=== PATIENT | female | born 1950 | race Caucasian/White ===

== ENCOUNTER → 2017-05-02 | Outpatient (CLI) | payer OTHER ==
[~2017-05-02] MED LIST: ATOR40TA PO; AZIT250 PO; BENZ100A PO; CHOL10002 PO; CIPR500 PO; CRUTCH2 USE; Flonase 0.05% N16 GM; HYDACE5 PO; IBU; IBUP800 PO; INS70/30PN SC; INSULANPEN SC; LOSA50 PO; METF500 PO; PHENA200 PO; SULTRIDS PO; TRAM50 PO; TYL
[2017-05-02 14:14] LABS: Hematocrit 38.2 % (33.0-51.0); Hemoglobin 12.7 g/dL (11.5-16.0)
[2017-05-02 14:58] LABS: Albumin, Blood 3.3 g/dL (3.4-5.0); Anion Gap 9 mmol/L (6-16); Blood Urea Nitrogen 30 mg/dL (8-24); Bun/Creatinine Ratio 46.5 (12.0-20.0); CO2, Blood 26 mmol/L (21-32); Calcium, Blood 9.2 mg/dL (8.5-10.1); Chloride, Blood 101 mmol/L (98-108); Creatinine, Blood 0.65 mg/dL (0.40-1.00); Glomerular Filtration Rate >60 (60-); Glucose, Blood 204 mg/dL (70-99); Phosphorus, Blood 4.4 mg/dL (2.5-4.9); Potassium, Blood 4.3 mmol/L (3.5-5.5); Sodium, Blood 136 mmol/L (136-145)
[2017-05-03 19:40] LABS: ANA Negative (NEG); Myeloperoxidase Antibody <0.2 AI (<1.0)
[2017-05-03 20:22] LABS: Hepatitis C Antibody Non Reactive (NR)
[2017-05-03 22:58] LABS: IgA 505 mg/dL (87-352); IgG 1107 mg/dL (700-1600); IgM 56 mg/dL (26-217)
[2017-05-04 11:48] LABS: Albumin 3.4 g/dL (3.3-4.8); Albumin 47.3 % (45.0-80.0); Protein, Total 7.2 g/dL (6.1-7.8)
[2017-05-04 18:47] LABS: ANCA <1:20
== END ==
LOC: OLS 13:36 → LAB SHORT 13:36
PROVIDERS: Internal Medicine
DX: R80.9 Proteinuria, unspecified (principal); E55.9 Vitamin D deficiency, unspecified; D64.9 Anemia, unspecified
CPT/HCPCS: 36415; 80069; 82306; 82784; 83516; 84165; 85014; 85018; 86038; 86256; 86334; 86704; 86706; 86708; 86803; 87340

== ENCOUNTER 2017-05-18 09:17 | Day surgery (SDC) | payer OTHER ==
[~2017-05-18] VITALS: Ht 160 cm; Wt 2.4 kg
[~2017-05-18 09:17] MED LIST changes: -ATOR40TA PO; -CHOL10002 PO; -Flonase 0.05% N16 GM; -LOSA50 PO; -TRAM50 PO
[2017-05-18] MEDS ORDERED: LOSA50 PO (10:05)
[2017-05-18] MEDS ORDERED: ATOR40TA PO (10:06)
[2018-02-18] MEDS ORDERED: CHOL10002 PO (08:20)
[2018-02-18] MEDS ORDERED: TRAM50 PO (08:21)
== END 2017-05-18 14:38 | disposition home or self-care (01) ==
LOC: ORSCSDS 09:17
PROVIDERS: Podiatrist Foot & Ankle Surgery
PROC: 0QSH04Z Reposition Left Tibia with Internal Fixation Device, Open Approach (ICD-10-PCS; principal; 2017-05-18 10:45)
PROC: 0QSK04Z Reposition Left Fibula with Internal Fixation Device, Open Approach (ICD-10-PCS; principal; 2017-05-18 10:45)
DX: S82.841A Displaced bimalleolar fracture of right lower leg, initial encounter for closed fracture (principal); I10 Essential (primary) hypertension; E11.9 Type 2 diabetes mellitus without complications; Z79.4 Long term (current) use of insulin; Z79.899 Other long term (current) drug therapy
CPT/HCPCS: 82947; C1713; J0171; J0690; J1100; J1885; J2250; J2405; J3010; J7120

== ENCOUNTER 2017-10-04 01:16 | Emergency (ER) | payer OTHER ==
[~2017-10-04] VITALS: Ht 160 cm; Wt 59.0 kg
[~2017-10-04 01:16] MED LIST changes: +ATOR40TA; +LOSA50
[2017-10-04 02:06] LABS: BASOPHILS ABSOLUTE AUTO 0.06 K/mm3 (0.00-0.23); BASOPHILS PERCENT AUTO 1 % (0-2); EOSINOPHILS ABSOLUTE AUTO 0.21 K/mm3 (0.00-0.68); EOSINOPHILS PERCENT AUTO 2 % (0-6); Hematocrit 37.1 % (33.0-51.0); Hemoglobin 12.4 g/dL (11.5-16.0); IMMATURE GRAN ABSOLUTE AUTO 0.08 K/mm3 (0.00-0.10); IMMATURE GRAN PERCENT AUTO 1 % (0-1); LYMPHOCYTES ABSOLUTE AUTO 4.15 K/mm3 (0.84-5.20); LYMPHOCYTES PERCENT AUTO 35 % (21-46); MONOCYTES ABSOLUTE AUTO 1.09 K/mm3 (0.16-1.47); MONOCYTES PERCENT AUTO 9 % (4-13); Mean Corpuscular HGB 28.9 pg (26.0-34.0); Mean Corpuscular HGB Conc 33.4 g/dL (31.5-36.5); Mean Corpuscular Volume 87 fL (80-100); Mean Platelet Volume 10.3 fL (9.1-12.4); NEUTROPHILS ABSOLUTE AUTO 6.16 K/mm3 (1.96-9.15); NEUTROPHILS PERCENT AUTO 52 % (41-73); Platelet Count 507 K/mm3 (150-400); RDW Coefficient Variation 13.3 % (11.7-14.2); RDW Standard Deviation 41.7 fL (35.1-46.3); Red Blood Cell Count 4.29 M/mm3 (3.80-5.20); White Blood Cell Count 11.75 K/mm3 (4.00-11.30)
[2017-10-04 02:18] LABS: Anion Gap 6 mmol/L (6-16); Blood Urea Nitrogen 21 mg/dL (8-24); Bun/Creatinine Ratio 29.2 (12.0-20.0); CO2, Blood 30 mmol/L (21-32); Calcium, Blood 9.1 mg/dL (8.5-10.1); Chloride, Blood 96 mmol/L (98-108); Creatinine, Blood 0.72 mg/dL (0.40-1.00); Glomerular Filtration Rate >60 (60-); Glucose, Blood 459 mg/dL (70-99); Potassium, Blood 4.1 mmol/L (3.5-5.5); Sodium, Blood 132 mmol/L (136-145)
[2017-10-04] MEDS ORDERED: Flonase 0.05% N16 GM (02:50)
== END 2017-10-04 03:28 | disposition home or self-care (01) ==
LOC: ER 01:16
PROVIDERS: Emergency Medicine
DX: R09.82 Postnasal drip (principal); R05 Cough; E11.65 Type 2 diabetes mellitus with hyperglycemia; Z79.4 Long term (current) use of insulin; Z79.899 Other long term (current) drug therapy
CPT/HCPCS: 36415; 71046; 80048; 85025; 99283-25

== ENCOUNTER 2018-06-30 18:44 | Emergency (ER) | payer OTHER ==
[~2018-06-30] VITALS: Ht 160 cm; Wt 63.5 kg
[~2018-06-30 18:44] MED LIST changes: -ATOR40TA; +ATOR40TA PO; +CHOL10002 PO; +Flonase 0.05% N16 GM; -LOSA50; +LOSA50 PO; +TRAM50 PO
[2018-06-30 19:57] LABS: BASOPHILS ABSOLUTE AUTO 0.07 K/mm3 (0.00-0.23); BASOPHILS PERCENT AUTO 1 % (0-2); EOSINOPHILS ABSOLUTE AUTO 0.15 K/mm3 (0.00-0.68); EOSINOPHILS PERCENT AUTO 1 % (0-6); Hematocrit 37.7 % (33.0-51.0); Hemoglobin 12.7 g/dL (11.5-16.0); IMMATURE GRAN ABSOLUTE AUTO 0.02 K/mm3 (0.00-0.10); IMMATURE GRAN PERCENT AUTO 0 % (0-1); LYMPHOCYTES ABSOLUTE AUTO 4.06 K/mm3 (0.84-5.20); LYMPHOCYTES PERCENT AUTO 38 % (21-46); MONOCYTES ABSOLUTE AUTO 0.69 K/mm3 (0.16-1.47); MONOCYTES PERCENT AUTO 7 % (4-13); Mean Corpuscular HGB 30.2 pg (26.0-34.0); Mean Corpuscular HGB Conc 33.7 g/dL (31.5-36.5); Mean Corpuscular Volume 90 fL (80-100); Mean Platelet Volume 10.9 fL (9.1-12.4); NEUTROPHILS PERCENT AUTO 53 % (41-73); Platelet Count 371 K/mm3 (150-400); RDW Coefficient Variation 12.1 % (11.7-14.2); RDW Standard Deviation 39.3 fL (35.1-46.3); White Blood Cell Count 10.69 K/mm3 (4.00-11.30)
[2018-06-30 20:14] LABS: Alanine Aminotransfer (ALT/SGP 24 U/L (12-78); Albumin, Blood 2.7 g/dL (3.4-5.0); Albumin/Globulin Ratio 0.6 (0.8-1.8); Alk Phos 182 U/L (50-136); Anion Gap 8 mmol/L (6-16); Aspartate Aminotrans (AST/SGOT 23 U/L (12-37); Bilirubin, Total 0.2 mg/dL (0.1-1.0); Blood Urea Nitrogen 30 mg/dL (8-24); Bun/Creatinine Ratio 28.8 (12.0-20.0); CO2, Blood 27 mmol/L (21-32); Calcium, Blood 9.4 mg/dL (8.5-10.1); Chloride, Blood 105 mmol/L (98-108); Creatinine, Blood 1.04 mg/dL (0.40-1.00); Globulin, Blood 4.3 g/dL (2.2-4.0); Glomerular Filtration Rate 56 (60-); Glucose, Blood 110 mg/dL (70-99); Potassium, Blood 3.5 mmol/L (3.5-5.5); Sodium, Blood 140 mmol/L (136-145); Troponin I <0.015 ng/mL (0.000-0.040)
== END 2018-06-30 22:52 | disposition home or self-care (01) ==
LOC: ER 18:44
PROVIDERS: Emergency Medicine
DX: R42 Dizziness and giddiness (principal); R53.1 Weakness; R53.83 Other fatigue; E11.9 Type 2 diabetes mellitus without complications; I10 Essential (primary) hypertension; Z79.899 Other long term (current) drug therapy; Z79.4 Long term (current) use of insulin
CPT/HCPCS: 70450; 80053; 82947; 84484; 85025; 93005; 93010; 99284-25

== ENCOUNTER 2018-07-28 22:16 | Emergency (ER) | payer OTHER ==
[~2018-07-28] VITALS: Ht 160 cm; Wt 64.0 kg
[2018-07-28 23:47] LABS: BASOPHILS ABSOLUTE AUTO 0.06 K/mm3 (0.00-0.23); BASOPHILS PERCENT AUTO 0 % (0-2); EOSINOPHILS PERCENT AUTO 0 % (0-6); Hemoglobin 11.6 g/dL (11.5-16.0); IMMATURE GRAN ABSOLUTE AUTO 0.17 K/mm3 (0.00-0.10); IMMATURE GRAN PERCENT AUTO 1 % (0-1); LYMPHOCYTES ABSOLUTE AUTO 1.34 K/mm3 (0.84-5.20); LYMPHOCYTES PERCENT AUTO 6 % (21-46); MONOCYTES ABSOLUTE AUTO 1.12 K/mm3 (0.16-1.47); MONOCYTES PERCENT AUTO 5 % (4-13); Mean Corpuscular HGB 30.6 pg (26.0-34.0); Mean Corpuscular HGB Conc 33.1 g/dL (31.5-36.5); Mean Corpuscular Volume 92 fL (80-100); Mean Platelet Volume 10.9 fL (9.1-12.4); NEUTROPHILS ABSOLUTE AUTO 19.34 K/mm3 (1.96-9.15); NEUTROPHILS PERCENT AUTO 88 % (41-73); Platelet Count 355 K/mm3 (150-400); RDW Coefficient Variation 12.8 % (11.7-14.2); RDW Standard Deviation 43.6 fL (35.1-46.3); Red Blood Cell Count 3.79 M/mm3 (3.80-5.20); White Blood Cell Count 22.03 K/mm3 (4.00-11.30)
[2018-07-28 23:48] LABS: Source, Urine Clean Catch
[2018-07-28 23:51] LABS: Bilirubin, Urine Neg (Neg); Blood, Urine 2+ (Neg); Glucose Qualitative, Urine 4+ (Neg); Ketones, Urine 3+ (Neg); Leukocyte Esterase, Urine Neg (Neg); Nitrite, Urine Neg (Neg); Protein, Urine 4+ (Neg); Urobilinogen, Urine NORM (Normal)
[2018-07-28 23:52] LABS: Appearance, Urine Clear (Clear); Color, Urine Yellow (P-Yellow)
[2018-07-28 23:57] LABS: Red Blood Cells, Urine 0-2 /hpf (0-2)
[2018-07-28 23:58] LABS: Amorphous Light (0-Heavy); Bacteria Mod /hpf; Mucus Light (0-Heavy); Squamous Epithelial Cells Few /hpf (Few)
[2018-07-29 00:04] LABS: Albumin, Blood 2.5 g/dL (3.4-5.0); Albumin/Globulin Ratio 0.6 (0.8-1.8); Bilirubin, Total 0.3 mg/dL (0.1-1.0); Bun/Creatinine Ratio 25.5 (12.0-20.0); Calcium, Blood 8.3 mg/dL (8.5-10.1); Creatinine, Blood 1.02 mg/dL (0.40-1.00); Globulin, Blood 4.4 g/dL (2.2-4.0); Potassium, Blood 4.6 mmol/L (3.5-5.5); Total Protein, Blood 6.9 g/dL (6.4-8.2)
[2018-07-29 00:07] LABS: U Amphetamine Screen Not Detected; U Barbituate Screen Not Detected; U Benzodiazapine Screen Not Detected; U Buprenorphine Screen Not Detected; U Cannabinoids Screen Not Detected; U Cocaine Screen Not Detected; U Methadone Screen Not Detected; U Methamphetamine Screen Not Detected; U Opiates Screen Not Detected; U Oxycodone Screen Not Detected; U Phencyclidine Screen Not Detected; U Propoxyphene Screen Not Detected
[2018-07-29] MEDS ORDERED: CEFD300 PO (01:16)
== END 2018-07-29 01:53 | disposition home or self-care (01) ==
LOC: ER 22:16
PROVIDERS: Emergency Medicine
DX: G93.41 Metabolic encephalopathy (principal); N39.0 Urinary tract infection, site not specified; E11.65 Type 2 diabetes mellitus with hyperglycemia; Z79.4 Long term (current) use of insulin
CPT/HCPCS: 70450; 71046; 80053; 81001; 82140; 82947; 85025; 87086; 93005; 93010; 96361; 96365; 99285-25; J0696; J1815; J7030

== ENCOUNTER 2018-10-01 18:15 | Emergency (ER) | payer OTHER ==
[~2018-10-01] VITALS: Ht 165.1 cm; Wt 59.0 kg
[~2018-10-01 18:15] MED LIST changes: +CEFD300 PO; -INS70/30PN SC; +LOSA25 PO; -LOSA50 PO; +NOVOLOG FL100 UNIT/1 SC
[2018-10-01 19:01] LABS: BASOPHILS ABSOLUTE AUTO 0.07 K/mm3 (0.00-0.23); BASOPHILS PERCENT AUTO 1 % (0-2); EOSINOPHILS ABSOLUTE AUTO 0.24 K/mm3 (0.00-0.68); EOSINOPHILS PERCENT AUTO 3 % (0-6); Hematocrit 36.9 % (33.0-51.0); Hemoglobin 12.5 g/dL (11.5-16.0); IMMATURE GRAN ABSOLUTE AUTO 0.02 K/mm3 (0.00-0.10); IMMATURE GRAN PERCENT AUTO 0 % (0-1); LYMPHOCYTES ABSOLUTE AUTO 2.36 K/mm3 (0.84-5.20); LYMPHOCYTES PERCENT AUTO 25 % (21-46); MONOCYTES ABSOLUTE AUTO 0.66 K/mm3 (0.16-1.47); MONOCYTES PERCENT AUTO 7 % (4-13); Mean Corpuscular HGB 30.1 pg (26.0-34.0); Mean Corpuscular HGB Conc 33.9 g/dL (31.5-36.5); Mean Corpuscular Volume 89 fL (80-100); Mean Platelet Volume 11.6 fL (9.1-12.4); NEUTROPHILS ABSOLUTE AUTO 6.16 K/mm3 (1.96-9.15); NEUTROPHILS PERCENT AUTO 65 % (41-73); Platelet Count 445 K/mm3 (150-400); RDW Coefficient Variation 13.2 % (11.7-14.2); RDW Standard Deviation 42.8 fL (35.1-46.3); Red Blood Cell Count 4.15 M/mm3 (3.80-5.20); White Blood Cell Count 9.51 K/mm3 (4.00-11.30)
[2018-10-01 19:20] LABS: Albumin, Blood 2.1 g/dL (3.4-5.0); Albumin/Globulin Ratio 0.5 (0.8-1.8); Bilirubin, Total 0.3 mg/dL (0.1-1.0); Calcium, Blood 8.9 mg/dL (8.5-10.1); Creatinine, Blood 1.19 mg/dL (0.40-1.00); Globulin, Blood 4.3 g/dL (2.2-4.0); Potassium, Blood 3.3 mmol/L (3.5-5.5); Total Protein, Blood 6.4 g/dL (6.4-8.2)
== END 2018-10-01 23:05 | disposition home or self-care (01) ==
LOC: ER 18:15
PROVIDERS: Emergency Medicine
DX: T38.3X1A Poisoning by insulin and oral hypoglycemic [antidiabetic] drugs, accidental (unintentional), initial encounter (principal); E11.9 Type 2 diabetes mellitus without complications; I10 Essential (primary) hypertension; Z79.4 Long term (current) use of insulin; Z79.899 Other long term (current) drug therapy
CPT/HCPCS: 80053; 82947; 85025; 96360; 96361; 99284-25; A9270; J7042; J7799

== ENCOUNTER 2018-10-04 15:34 | Emergency (ER) | payer OTHER ==
[~2018-10-04] VITALS: Ht 160 cm; Wt 56.7 kg
[2018-10-04 16:18] LABS: BASOPHILS ABSOLUTE AUTO 0.09 K/mm3 (0.00-0.23); BASOPHILS PERCENT AUTO 1 % (0-2); EOSINOPHILS ABSOLUTE AUTO 0.39 K/mm3 (0.00-0.68); EOSINOPHILS PERCENT AUTO 5 % (0-6); Hematocrit 37.9 % (33.0-51.0); Hemoglobin 12.3 g/dL (11.5-16.0); IMMATURE GRAN ABSOLUTE AUTO 0.02 K/mm3 (0.00-0.10); IMMATURE GRAN PERCENT AUTO 0 % (0-1); LYMPHOCYTES ABSOLUTE AUTO 2.37 K/mm3 (0.84-5.20); LYMPHOCYTES PERCENT AUTO 30 % (21-46); MONOCYTES PERCENT AUTO 9 % (4-13); Mean Corpuscular HGB 29.7 pg (26.0-34.0); Mean Corpuscular HGB Conc 32.5 g/dL (31.5-36.5); Mean Corpuscular Volume 92 fL (80-100); Mean Platelet Volume 11.3 fL (9.1-12.4); NEUTROPHILS PERCENT AUTO 55 % (41-73); Platelet Count 453 K/mm3 (150-400); RDW Coefficient Variation 13.4 % (11.7-14.2); RDW Standard Deviation 45.2 fL (35.1-46.3); Red Blood Cell Count 4.14 M/mm3 (3.80-5.20); White Blood Cell Count 7.97 K/mm3 (4.00-11.30)
[2018-10-04 16:50] LABS: Albumin, Blood 2.4 g/dL (3.4-5.0); Albumin/Globulin Ratio 0.6 (0.8-1.8); Bilirubin, Total 0.3 mg/dL (0.1-1.0); Bun/Creatinine Ratio 24.6 (12.0-20.0); Calcium, Blood 9.3 mg/dL (8.5-10.1); Creatinine, Blood 1.14 mg/dL (0.40-1.00); Potassium, Blood 3.8 mmol/L (3.5-5.5); Total Protein, Blood 6.4 g/dL (6.4-8.2)
[2018-10-04 17:33] LABS: Source, Urine Clean Catch
[2018-10-04 17:42] LABS: Bilirubin, Urine Neg (Neg); Blood, Urine 1+ (Neg); Glucose Qualitative, Urine 4+ (Neg); Ketones, Urine Neg (Neg); Leukocyte Esterase, Urine Neg (Neg); Nitrite, Urine Neg (Neg); Protein, Urine 4+ (Neg); Urobilinogen, Urine NORM (Normal)
[2018-10-04 17:53] LABS: Appearance, Urine Hazy (Clear); Color, Urine Yellow (P-Yellow)
[2018-10-04 18:01] LABS: Red Blood Cells, Urine 0-2 /hpf (0-2); Transitional Epithelial Cells Few /hpf (0-Rare)
[2018-10-04 18:02] LABS: White Blood Cells, Urine 0-2 /hpf (0-5)
[2018-10-04 18:05] LABS: Amorphous Light (0-Heavy); Bacteria Mod /hpf; Squamous Epithelial Cells Few /hpf (Few)
== END 2018-10-04 19:16 | disposition home or self-care (01) ==
LOC: ER 15:34
PROVIDERS: Physician Assistant
DX: E11.65 Type 2 diabetes mellitus with hyperglycemia (principal); I10 Essential (primary) hypertension; Z79.4 Long term (current) use of insulin; Z79.899 Other long term (current) drug therapy
CPT/HCPCS: 36415; 80053; 81001; 82947; 83605; 84484; 85025; 87040; 87086; 93005; 93010; 96360; 96361; 99285-25; J7030

== ENCOUNTER 2018-10-13 02:17 | Inpatient (IN) | payer OTHER ==
[~2018-10-13] VITALS: Ht 165.1 cm; Wt 59.0 kg
[2018-10-13 05:32] LABS: BASOPHILS ABSOLUTE AUTO 0.05 K/mm3 (0.00-0.23); BASOPHILS PERCENT AUTO 0 % (0-2); EOSINOPHILS ABSOLUTE AUTO 0.07 K/mm3 (0.00-0.68); EOSINOPHILS PERCENT AUTO 1 % (0-6); Hematocrit 35.7 % (33.0-51.0); Hemoglobin 12.1 g/dL (11.5-16.0); IMMATURE GRAN PERCENT AUTO 1 % (0-1); LYMPHOCYTES ABSOLUTE AUTO 2.27 K/mm3 (0.84-5.20); LYMPHOCYTES PERCENT AUTO 15 % (21-46); MONOCYTES ABSOLUTE AUTO 0.86 K/mm3 (0.16-1.47); MONOCYTES PERCENT AUTO 6 % (4-13); Mean Corpuscular HGB 30.3 pg (26.0-34.0); Mean Corpuscular HGB Conc 33.9 g/dL (31.5-36.5); Mean Platelet Volume 11.3 fL (9.1-12.4); NEUTROPHILS ABSOLUTE AUTO 11.51 K/mm3 (1.96-9.15); NEUTROPHILS PERCENT AUTO 77 % (41-73); NRBC ABSOLUTE 0.03 K/mm3 (0.00-0.02); NRBC Auto 0.2 /100 WBC (0.0-0.2); Platelet Count 367 K/mm3 (150-400); RDW Coefficient Variation 12.8 % (11.7-14.2); White Blood Cell Count 14.86 K/mm3 (4.00-11.30)
[2018-10-13 05:40] LABS: Mean Corpuscular Volume 89 fL (80-100)
[2018-10-13 05:52] LABS: Albumin, Blood 2.2 g/dL (3.4-5.0); Albumin/Globulin Ratio 0.4 (0.8-1.8); Bilirubin, Total 0.3 mg/dL (0.1-1.0); Bun/Creatinine Ratio 26.5 (12.0-20.0); Calcium, Blood 8.9 mg/dL (8.5-10.1); Creatinine, Blood 1.13 mg/dL (0.40-1.00); Globulin, Blood 5.6 g/dL (2.2-4.0); Potassium, Blood 3.7 mmol/L (3.5-5.5); Total Protein, Blood 7.8 g/dL (6.4-8.2)
--- NOTE | 2018-10-13 17:33 | NUR ---
SHIFT SUMMARY. 0989 PT ADMITTED TO MEDICAL FLOOR VIA STRETCHER, PT TRANSFERED TO BED WITH ONE ASSIST WITH PIVOT. DAUGHTER AT BEDSIDE AT TIME OF ADMIT FOR A SHORT TIME, HAS NOT RETURNED. PT IS LETHARGIC, AWAKENS EASILY WITH VERBAL STIMULI, SHE REPORTS FEELING TIRED. ORIENTATED X 2-3. PT C/O PAIN TO L KNEE, ICE PACK PLACED, PT REPORTED RELIEF. L FOOT WOUND DOCUMENTATION AND WOUND CARE COMPLETED. PT DENIES SOB, N/V. MR FOOT COOMPLETED. CBG NOW WNL. NO OTHER CHANGES OR CONCERNS.
[2018-10-14 05:12] LABS: BASOPHILS ABSOLUTE AUTO 0.07 K/mm3 (0.00-0.23); BASOPHILS PERCENT AUTO 0 % (0-2); EOSINOPHILS ABSOLUTE AUTO 0.13 K/mm3 (0.00-0.68); EOSINOPHILS PERCENT AUTO 1 % (0-6); Hematocrit 31.3 % (33.0-51.0); Hemoglobin 10.2 g/dL (11.5-16.0); IMMATURE GRAN ABSOLUTE AUTO 0.18 K/mm3 (0.00-0.10); IMMATURE GRAN PERCENT AUTO 1 % (0-1); LYMPHOCYTES ABSOLUTE AUTO 3.51 K/mm3 (0.84-5.20); LYMPHOCYTES PERCENT AUTO 20 % (21-46); MONOCYTES ABSOLUTE AUTO 1.32 K/mm3 (0.16-1.47); MONOCYTES PERCENT AUTO 8 % (4-13); Mean Corpuscular HGB 29.3 pg (26.0-34.0); Mean Corpuscular HGB Conc 32.6 g/dL (31.5-36.5); Mean Corpuscular Volume 90 fL (80-100); Mean Platelet Volume 10.8 fL (9.1-12.4); NEUTROPHILS PERCENT AUTO 71 % (41-73); NRBC ABSOLUTE 0.04 K/mm3 (0.00-0.02); NRBC Auto 0.2 /100 WBC (0.0-0.2); Platelet Count 358 K/mm3 (150-400); RDW Coefficient Variation 13.3 % (11.7-14.2); RDW Standard Deviation 43.8 fL (35.1-46.3); Red Blood Cell Count 3.48 M/mm3 (3.80-5.20); White Blood Cell Count 17.61 K/mm3 (4.00-11.30)
[2018-10-14 05:28] LABS: Albumin, Blood 1.8 g/dL (3.4-5.0); Anion Gap 8 mmol/L (6-16); Blood Urea Nitrogen 25 mg/dL (8-24); Bun/Creatinine Ratio 15.1 (12.0-20.0); CO2, Blood 22 mmol/L (21-32); Calcium, Blood 8.1 mg/dL (8.5-10.1); Chloride, Blood 108 mmol/L (98-108); Creatinine, Blood 1.66 mg/dL (0.40-1.00); Glomerular Filtration Rate 33 (60-); Glucose, Blood 117 mg/dL (70-99); Magnesium, Blood 2.1 mg/dL (1.6-2.4); Phosphorus, Blood 2.3 mg/dL (2.5-4.9); Sodium, Blood 138 mmol/L (136-145)
--- NOTE | 2018-10-14 06:35 | NUR ---
SHIFT SUMMARY PT A/O. SATS ON RA 88-89% PUT ON 2L O2 NC 92-94%. DOES GET SOB C EXERTION. C/O PAIN IN BACK AND MEDICATED C TYLENOL X2. SHE WAS ABLE TO SLEEP T/O NIGHT. SBA TO BSC. BED ALARM IN USE FOR SAFETY. CALL LIGHT IN REACH.
--- NOTE | 2018-10-14 11:45 | NUR ---
ASSUMED CARE: PT RESTING IN BED. NO ACUTE NEEDS OR CONCERNS AT THIS TIME.
--- NOTE | 2018-10-14 17:52 | NUR ---
SHIFT SUMMARY: PT MEDICATED X2 FOR PAIN. FAMILY AT BEDSIDE T/O SHIFT. REDNESS NOTED TO LEG, BUT HAS STAYED WITHIN THE DRAWN LINES. NO FURTHER NEEDS OR CONCERNS AT THIS TIME.
--- NOTE | 2018-10-15 02:32 | NUR ---
PT SHORT OF BREATH, CALLED DR. CABRERA AND REQUESTED PORTABLE CHEST XRAY, GRANTED. IMAGE PENDING.
[2018-10-15 05:23] LABS: BASOPHILS ABSOLUTE AUTO 0.07 K/mm3 (0.00-0.23); BASOPHILS PERCENT AUTO 0 % (0-2); EOSINOPHILS PERCENT AUTO 1 % (0-6); Hematocrit 32.8 % (33.0-51.0); Hemoglobin 10.4 g/dL (11.5-16.0); IMMATURE GRAN ABSOLUTE AUTO 0.18 K/mm3 (0.00-0.10); IMMATURE GRAN PERCENT AUTO 1 % (0-1); LYMPHOCYTES PERCENT AUTO 13 % (21-46); MONOCYTES ABSOLUTE AUTO 0.84 K/mm3 (0.16-1.47); MONOCYTES PERCENT AUTO 5 % (4-13); Mean Corpuscular HGB 28.9 pg (26.0-34.0); Mean Corpuscular HGB Conc 31.7 g/dL (31.5-36.5); Mean Corpuscular Volume 91 fL (80-100); Mean Platelet Volume 10.8 fL (9.1-12.4); NEUTROPHILS ABSOLUTE AUTO 14.28 K/mm3 (1.96-9.15); NEUTROPHILS PERCENT AUTO 80 % (41-73); NRBC ABSOLUTE 0.08 K/mm3 (0.00-0.02); NRBC Auto 0.5 /100 WBC (0.0-0.2); Platelet Count 376 K/mm3 (150-400); RDW Coefficient Variation 13.9 % (11.7-14.2); RDW Standard Deviation 46.5 fL (35.1-46.3); White Blood Cell Count 17.77 K/mm3 (4.00-11.30)
[2018-10-15 05:41] LABS: Anion Gap 9 mmol/L (6-16); Blood Urea Nitrogen 28 mg/dL (8-24); Bun/Creatinine Ratio 17.6 (12.0-20.0); CO2, Blood 19 mmol/L (21-32); Calcium, Blood 8.3 mg/dL (8.5-10.1); Chloride, Blood 111 mmol/L (98-108); Creatinine, Blood 1.59 mg/dL (0.40-1.00); Glomerular Filtration Rate 34 (60-); Glucose, Blood 117 mg/dL (70-99); Potassium, Blood 4.9 mmol/L (3.5-5.5); Sodium, Blood 139 mmol/L (136-145); Vancomycin, Random 17.7 ug/mL
--- NOTE | 2018-10-15 06:19 | NUR ---
SHIFT SUMMARY: PT IS ALERT AND ORIENTED WITH MINOR CONFUSION. PT CALLS APPROPRIATELY. PT COOPERATIVE WITH CARE. PT ANXIOUS AND SOB MOST OF THE NIGHT. SATS > 90% ON [address] CABRERA AND ASKED FOR CHEST XRAY, RESULTS PENDING. CONCERN FOR PLEURAL EFFUSION, STOPPED IV FLUIDS. PT REPORTS PAIN R/T CHEST TIGHTNESS ON ONE OCCASION, GAVE PRN HYDROCODONE. PT DENIES NAUSEA AND VOMITING. PT SLEPT VERY LITTLE IF ANY OVERNIGHT. WILL CONTINUE TO MONITOR.
--- NOTE | 2018-10-15 18:17 | NUR ---
SHIFT SUMMARY: AT START OF SHIFT THIS MORNING PT WAS A/O X 3 AND C/O SOB. LUNGS WERE CLEAR AND O2 SAT IN THE HIGH 90'S. PT STATED THAT SHE DID HAVE SOME STRESSORS AT HOME THAT COULD BE CONTRIBUTING TO HER FEELING ANXIOUS COUPLED WITH HER CURRENT DX. DR WONG WAS NOTIFIED AND THIS NURSE RECEIVED A NEW ORDER FOR ANTI-ANXIETY MEDS WHICH WAS GIVEN AND WAS EFFECTIVE. PT ALSO REPORTED LOW BACK PAIN AND TYLENOL WAS GIVEN. AFTER THAT THE PT SLEPT MOST OF THE DAY. DRESSINGS TO LEFT KNEE AND RIGHT TOE WERE CHANGED AND WOUND CULTURE WAS COLLECTED. JUST BEFORE DINNER PT CBG WAS 44, SNACKS AND JUICE WERE GIVEN AND PT REPORTED THAT SHE WAS FEELING MUCH BETTER AND MORE AWAKE. DR ZUNIGA WAS NOTIFIED AND STATED HE WOULD REVIEW RELATED ORDERS. CBG WAS RE-CHECKED AND WAS 66. PT IS NOW AWAKE AND ALERT AT BASELINE AND EATING DINNER SITTING UP ON SIDE OF BED. SHE IS ABLE TO MAKE HER NEEDS KNOWN WITH FREQUENT NURSING CHECKS.
[2018-10-16 04:56] LABS: BASOPHILS ABSOLUTE AUTO 0.07 K/mm3 (0.00-0.23); BASOPHILS PERCENT AUTO 1 % (0-2); EOSINOPHILS ABSOLUTE AUTO 0.44 K/mm3 (0.00-0.68); EOSINOPHILS PERCENT AUTO 3 % (0-6); Hematocrit 29.9 % (33.0-51.0); Hemoglobin 9.6 g/dL (11.5-16.0); IMMATURE GRAN PERCENT AUTO 1 % (0-1); LYMPHOCYTES ABSOLUTE AUTO 3.31 K/mm3 (0.84-5.20); LYMPHOCYTES PERCENT AUTO 25 % (21-46); MONOCYTES PERCENT AUTO 7 % (4-13); Mean Corpuscular HGB 29.4 pg (26.0-34.0); Mean Corpuscular HGB Conc 32.1 g/dL (31.5-36.5); Mean Corpuscular Volume 92 fL (80-100); Mean Platelet Volume 10.7 fL (9.1-12.4); NEUTROPHILS ABSOLUTE AUTO 8.55 K/mm3 (1.96-9.15); NEUTROPHILS PERCENT AUTO 64 % (41-73); NRBC ABSOLUTE 0.11 K/mm3 (0.00-0.02); NRBC Auto 0.8 /100 WBC (0.0-0.2); Platelet Count 396 K/mm3 (150-400); RDW Coefficient Variation 14.2 % (11.7-14.2); RDW Standard Deviation 47.9 fL (35.1-46.3); Red Blood Cell Count 3.26 M/mm3 (3.80-5.20); White Blood Cell Count 13.37 K/mm3 (4.00-11.30)
[2018-10-16 05:12] LABS: Albumin, Blood 1.6 g/dL (3.4-5.0); Anion Gap 7 mmol/L (6-16); Blood Urea Nitrogen 27 mg/dL (8-24); Bun/Creatinine Ratio 16.9 (12.0-20.0); CO2, Blood 20 mmol/L (21-32); Calcium, Blood 8.5 mg/dL (8.5-10.1); Chloride, Blood 113 mmol/L (98-108); Glomerular Filtration Rate 34 (60-); Glucose, Blood 66 mg/dL (70-99); Phosphorus, Blood 2.7 mg/dL (2.5-4.9); Potassium, Blood 4.2 mmol/L (3.5-5.5); Sodium, Blood 140 mmol/L (136-145)
--- NOTE | 2018-10-16 07:20 | NUR ---
anxiety resolved with medication, pain resolved with medication and treatments, call light in reach, saline locked, 2L via nc, hob elevated, bsr given to returning day staff member
[2018-10-16 09:05] LABS: Vancomycin, Trough 21.2 ug/mL (5.0-10.0)
--- NOTE | 2018-10-16 17:31 | NUR ---
SHIFT SUMMARY: PT A/O X 3 WITH MOMENTS OF CONFUSION THIS SHIFT. AT START OF SHIFT PT CBG WAS 44 AND PT WAS SYMPTOMATIC OF HYPOGLYCEMIA SHE WAS ASSISTED WITH DRINKS AND SNACKS AND PT REPORTED SHE FELT BETTER, CBG RE-CHECK WAS WNL. DR ZUNIGA WAS NOTIFIED OF THIS WELL HER ONGOING SYMPTOMS OF ANXIETY AND ADJUSTED ORDERS REFLECTED ON MAY. PT WAS ASSISTED UP TO CHAIR AND HANDS AND FACE WASHED AND HELPED INTO A NEW GOWN. PT NAPPED ON AND OFF THIS SHIFT AND ATE WELL FOR MEALS. PT CONTINUES TO NEED HELP WITH TOILETING AND ADLS WELL FREQUENT NURSE ROUNDING.
[2018-10-17 05:10] LABS: BASOPHILS ABSOLUTE AUTO 0.07 K/mm3 (0.00-0.23); BASOPHILS PERCENT AUTO 1 % (0-2); EOSINOPHILS ABSOLUTE AUTO 0.36 K/mm3 (0.00-0.68); EOSINOPHILS PERCENT AUTO 3 % (0-6); Hematocrit 33.1 % (33.0-51.0); Hemoglobin 10.6 g/dL (11.5-16.0); IMMATURE GRAN ABSOLUTE AUTO 0.11 K/mm3 (0.00-0.10); IMMATURE GRAN PERCENT AUTO 1 % (0-1); LYMPHOCYTES ABSOLUTE AUTO 2.72 K/mm3 (0.84-5.20); LYMPHOCYTES PERCENT AUTO 22 % (21-46); MONOCYTES ABSOLUTE AUTO 0.79 K/mm3 (0.16-1.47); MONOCYTES PERCENT AUTO 7 % (4-13); Mean Corpuscular HGB 29.6 pg (26.0-34.0); Mean Corpuscular Volume 93 fL (80-100); Mean Platelet Volume 10.4 fL (9.1-12.4); NEUTROPHILS ABSOLUTE AUTO 8.17 K/mm3 (1.96-9.15); NEUTROPHILS PERCENT AUTO 67 % (41-73); NRBC ABSOLUTE 0.13 K/mm3 (0.00-0.02); NRBC Auto 1.1 /100 WBC (0.0-0.2); Platelet Count 446 K/mm3 (150-400); RDW Coefficient Variation 14.6 % (11.7-14.2); RDW Standard Deviation 49.3 fL (35.1-46.3); Red Blood Cell Count 3.58 M/mm3 (3.80-5.20); White Blood Cell Count 12.22 K/mm3 (4.00-11.30)
[2018-10-17 05:27] LABS: Albumin, Blood 1.9 g/dL (3.4-5.0); Anion Gap 6 mmol/L (6-16); Blood Urea Nitrogen 26 mg/dL (8-24); Bun/Creatinine Ratio 15.4 (12.0-20.0); CO2, Blood 22 mmol/L (21-32); Calcium, Blood 9.1 mg/dL (8.5-10.1); Chloride, Blood 111 mmol/L (98-108); Creatinine, Blood 1.69 mg/dL (0.40-1.00); Glomerular Filtration Rate 32 (60-); Glucose, Blood 80 mg/dL (70-99); Magnesium, Blood 2.1 mg/dL (1.6-2.4); Phosphorus, Blood 3.3 mg/dL (2.5-4.9); Potassium, Blood 4.2 mmol/L (3.5-5.5); Sodium, Blood 139 mmol/L (136-145)
--- NOTE | 2018-10-17 06:49 | NUR ---
no hyperventolating/breathing issues, still wheeze on exhalation but not to the degree of previous morning, checked cbg early to try to sotelo off low cbg event like previous day, call light in reach, saline locked, will continue to montitor and treat until share bsr with day shift.
--- NOTE | 2018-10-17 10:38 | NUR ---
echocardiogram complete
--- NOTE | 2018-10-17 18:25 | NUR ---
SHIFT SUMMARY PT HAS BEEN SLEEPING A LOT OF THE SHIFT. PT VERY SHORT OF BREATH WITH ANY EXERTION. ECHO DONE THIS SHIFT AND WAITING FOR RESULTS. PT HAS HAD NO COMPLAINTS OF PAIN THIS SHIFT. PT'S BLOOD SUGAR WAS LOW THIS AM. DR. WONG MADE CHANGES TO PT'S INSULIN AND DIABETES MEDICATIONS. PT UP TO BSC 1-2 PERSON ASSIST WITH GAIT BELT. PT'S DAUGHTER IN TO SEE PT THIS EVENING AND REQUESTING PT TO GO TO SNF TO GET STRONGER. NO ACUTE CHANGES THIS SHIFT. CALL LIGHT IN REACH. BED ALARM ON FOR SAFETY. WILL CONTINUE TO MONITOR AND REPORT TO ONCOMING RN.
[2018-10-18 05:31] LABS: BASOPHILS ABSOLUTE AUTO 0.04 K/mm3 (0.00-0.23); BASOPHILS PERCENT AUTO 0 % (0-2); EOSINOPHILS ABSOLUTE AUTO 0.36 K/mm3 (0.00-0.68); EOSINOPHILS PERCENT AUTO 3 % (0-6); Hematocrit 31.3 % (33.0-51.0); Hemoglobin 10.1 g/dL (11.5-16.0); IMMATURE GRAN ABSOLUTE AUTO 0.09 K/mm3 (0.00-0.10); IMMATURE GRAN PERCENT AUTO 1 % (0-1); LYMPHOCYTES ABSOLUTE AUTO 2.39 K/mm3 (0.84-5.20); LYMPHOCYTES PERCENT AUTO 21 % (21-46); MONOCYTES ABSOLUTE AUTO 0.92 K/mm3 (0.16-1.47); MONOCYTES PERCENT AUTO 8 % (4-13); Mean Corpuscular HGB 28.9 pg (26.0-34.0); Mean Corpuscular HGB Conc 32.3 g/dL (31.5-36.5); Mean Corpuscular Volume 90 fL (80-100); Mean Platelet Volume 10.3 fL (9.1-12.4); NEUTROPHILS ABSOLUTE AUTO 7.51 K/mm3 (1.96-9.15); NEUTROPHILS PERCENT AUTO 66 % (41-73); NRBC ABSOLUTE 0.02 K/mm3 (0.00-0.02); NRBC Auto 0.2 /100 WBC (0.0-0.2); Platelet Count 442 K/mm3 (150-400); RDW Coefficient Variation 14.4 % (11.7-14.2); RDW Standard Deviation 46.8 fL (35.1-46.3); Red Blood Cell Count 3.49 M/mm3 (3.80-5.20); White Blood Cell Count 11.31 K/mm3 (4.00-11.30)
[2018-10-18 05:45] LABS: Bun/Creatinine Ratio 13.5 (12.0-20.0); Calcium, Blood 8.9 mg/dL (8.5-10.1); Creatinine, Blood 1.55 mg/dL (0.40-1.00); Potassium, Blood 4.1 mmol/L (3.5-5.5)
--- NOTE | 2018-10-18 07:34 | NUR ---
a+o, provided with morning snack due to previous low cbg in the am also checked blood sugar, call light in reach, saline locked but hard to flush, 2 L via nc, bsr given to day nurse discussed anxiety and heart issues with pt
--- NOTE | 2018-10-18 18:35 | NUR ---
PATIENT IS ALERT AND ORIENTED COOPERATIVE WITH CARE. NO COMPLAINTS THROUGHOUT THE DAY. NO FAMILY AT THE BEDSIDE. NEW IV PLACED. WILL CONTINUE TO MONITOR.
--- NOTE | 2018-10-19 05:04 | NUR ---
SHIFT SUMMARY. PT WAS GIVEN PAIN MEDICATION PER EMAR FOR THE PAIN IN HER R. FOOT. PT HAD ADEQUATE URINARY OUTPUT. NO COMPLAINTS OF SOB. NO OTHER COMPLAINTS AT THIS TIME. NO FEVER NOTED THIS SHIFT. PT CONTINUES TO BE 1X ASSIST TO THE COMMODE. WILL CONTINUE TO MONITOR.
[2018-10-19 12:47] LABS: BASOPHILS ABSOLUTE AUTO 0.05 K/mm3 (0.00-0.23); BASOPHILS PERCENT AUTO 0 % (0-2); EOSINOPHILS ABSOLUTE AUTO 0.46 K/mm3 (0.00-0.68); EOSINOPHILS PERCENT AUTO 4 % (0-6); Hematocrit 31.8 % (33.0-51.0); Hemoglobin 10.2 g/dL (11.5-16.0); IMMATURE GRAN ABSOLUTE AUTO 0.05 K/mm3 (0.00-0.10); IMMATURE GRAN PERCENT AUTO 0 % (0-1); LYMPHOCYTES ABSOLUTE AUTO 2.52 K/mm3 (0.84-5.20); LYMPHOCYTES PERCENT AUTO 22 % (21-46); MONOCYTES ABSOLUTE AUTO 1.02 K/mm3 (0.16-1.47); MONOCYTES PERCENT AUTO 9 % (4-13); Mean Corpuscular HGB 29.2 pg (26.0-34.0); Mean Corpuscular HGB Conc 32.1 g/dL (31.5-36.5); Mean Corpuscular Volume 91 fL (80-100); Mean Platelet Volume 10.7 fL (9.1-12.4); NEUTROPHILS ABSOLUTE AUTO 7.32 K/mm3 (1.96-9.15); NEUTROPHILS PERCENT AUTO 64 % (41-73); NRBC ABSOLUTE 0.02 K/mm3 (0.00-0.02); NRBC Auto 0.2 /100 WBC (0.0-0.2); Platelet Count 474 K/mm3 (150-400); RDW Coefficient Variation 14.3 % (11.7-14.2); RDW Standard Deviation 47.2 fL (35.1-46.3); Red Blood Cell Count 3.49 M/mm3 (3.80-5.20); White Blood Cell Count 11.42 K/mm3 (4.00-11.30)
[2018-10-19 13:04] LABS: Albumin, Blood 1.8 g/dL (3.4-5.0); Anion Gap 8 mmol/L (6-16); Blood Urea Nitrogen 20 mg/dL (8-24); Bun/Creatinine Ratio 14.1 (12.0-20.0); CO2, Blood 23 mmol/L (21-32); Calcium, Blood 8.8 mg/dL (8.5-10.1); Chloride, Blood 109 mmol/L (98-108); Creatinine, Blood 1.42 mg/dL (0.40-1.00); Glomerular Filtration Rate 39 (60-); Glucose, Blood 207 mg/dL (70-99); Potassium, Blood 4.3 mmol/L (3.5-5.5); Sodium, Blood 140 mmol/L (136-145)
--- NOTE | 2018-10-19 17:32 | NUR ---
SHIFT SUMMARY: PT IS AWAKE AND ALERT X 3 AT BASELINE WITH MILD CONFUSION AT TIMES. SHE CONTINUES TO BE A X 1 ASSIST TO [facility] [place]. PT WAS ASSISTED TO THE SHOWER AND WITH NEW GOWN AND LINENS. ABRASION TO LEFT KNEE AND CALLOUS TO BOTTOM OF RIGHT FOOT ARE IVA. IV ABO INFUSED WITH NO ISSUE TO PERIPHERAL LINE. PT STATES THAT HER ANXIETY HAS IMPROVED WITH NEW MEDICATIONS. DAUGHTER AND PT HAVE REQUESTED THAT SHE GO TO [facility] FOR THERAPIES AND MEDICATION AND DIABETIC EDUCATION UPON DC FROM [facility], AND DR PENNINGTON WAS IMFORMED OF THEIR REQUEST. PT IS ABLE TO MAKE HER NEEDS KNOWN AND USES CALL LIGHT FOR HELP WHEN NEEDED.
--- NOTE | 2018-10-20 04:55 | NUR ---
SHIFT SUMMARY PT CONTINUES TO BE A 1X ASSIST WITH GAIT BELT TO THE COMMODE. PAIN MEDICATION WAS GIVEN ONCE THIS SHIFT. NO CLINICAL CHANGE OCCURRED WITH PT. VSS. WILL CONTINUE TO MONITOR PT.
[2018-10-20 13:03] LABS: Albumin, Blood 1.7 g/dL (3.4-5.0); Anion Gap 6 mmol/L (6-16); Blood Urea Nitrogen 18 mg/dL (8-24); Bun/Creatinine Ratio 12.7 (12.0-20.0); CO2, Blood 24 mmol/L (21-32); Calcium, Blood 8.4 mg/dL (8.5-10.1); Chloride, Blood 108 mmol/L (98-108); Creatinine, Blood 1.42 mg/dL (0.40-1.00); Glomerular Filtration Rate 39 (60-); Glucose, Blood 173 mg/dL (70-99); Phosphorus, Blood 3.9 mg/dL (2.5-4.9); Sodium, Blood 138 mmol/L (136-145)
--- NOTE | 2018-10-20 17:29 | NUR ---
SHIFT SUMMARY: PT IS A/O AT BASELINE TODAY WITH NO C/O PAIN. PT SLEPT MOST OF THE DAY. CBGS WERE SLIGHTLY ELEVATED AND INSULIN WAS GIVEN PER SLIDING SCALE. IV ABO INFUSED WITH NO ISSUE. PT CONTINUES TO BE A STAND BY ASSIST TO THE BSC FOR TOILETING. PT CALLS FOR HELP WHEN NEEDED BUT STILL NEEDS FREQUENT NURSE ROUNDING.
--- NOTE | 2018-10-21 04:48 | NUR ---
SHIFT SUMMARY PT HAD AN UNEVENTFUL NIGHT. PAIN MEDICATION GIVEN FOR FOOT PAIN ORDERED ONCE. NO OTHER COMPLAINTS. VSS. WILL CONTINUE TO MONITOR.
[2018-10-21 05:00] LABS: International Normalized Ratio 0.98; Prothrombin Time Results 10.4 Sec (9.7-11.5)
[2018-10-21 05:23] LABS: Creatinine, Urine Random 41.2 mg/dL (27.00-270.00)
[2018-10-21 05:51] LABS: Microalb/Creat Ratio UR, Rand 3033.98 mg/g (0.000-30.000)
[2018-10-21 12:25] LABS: Albumin, Blood 1.8 g/dL (3.4-5.0); Anion Gap 5 mmol/L (6-16); Blood Urea Nitrogen 19 mg/dL (8-24); Bun/Creatinine Ratio 12.9 (12.0-20.0); CO2, Blood 26 mmol/L (21-32); Calcium, Blood 8.8 mg/dL (8.5-10.1); Chloride, Blood 106 mmol/L (98-108); Creatinine, Blood 1.47 mg/dL (0.40-1.00); Glomerular Filtration Rate 38 (60-); Glucose, Blood 254 mg/dL (70-99); Phosphorus, Blood 3.9 mg/dL (2.5-4.9); Potassium, Blood 4.3 mmol/L (3.5-5.5); Sodium, Blood 137 mmol/L (136-145)
--- NOTE | 2018-10-21 18:07 | NUR ---
SHIFT SUMMARY: PT HAS BEEN A/O X 3-4 TODAY AT BASELINE WITH MILD CONFUSION AT TIMES. AFTER VISITING WITH THE DOCTOR AND RECEIVING ORDERS FOR PT/OT CROW PT WAS ABLE TO WORK WITH THERAPIES AND WALK A VERY SHORT DISTANCE. AFTER THERAPY SHE BECAME NAUSEOUS AND PRN ZOFRAN WAS GIVEN AND EFFECTIVE. IV ABO WERE CHANGED TO PO PER MD AFTER IV INFILTRATED. PT DAUGHTER VISITED FOR A SHORT TIME TODAY. PT IS STILL REQUESTING TO GO TO [facility] FOR SKILLED THERAPY BEFORE RETURNING HOME. PT IS UP EATING DINNER. SHE CALLS FOR HELP WHEN NEEDED.
--- NOTE | 2018-10-21 20:27 | NUR ---
PT HAS NO IV ACCESS ORDER WITH CURRENT ZOFRAN ORDERED IV, Jordan WILSON NOTIFIED WITH ORDERS SWITCH ZOFRAN TO PO.
[2018-10-22 04:33] LABS: BASOPHILS ABSOLUTE AUTO 0.04 K/mm3 (0.00-0.23); BASOPHILS PERCENT AUTO 0 % (0-2); EOSINOPHILS ABSOLUTE AUTO 0.23 K/mm3 (0.00-0.68); EOSINOPHILS PERCENT AUTO 2 % (0-6); Hematocrit 33.2 % (33.0-51.0); Hemoglobin 10.5 g/dL (11.5-16.0); IMMATURE GRAN ABSOLUTE AUTO 0.03 K/mm3 (0.00-0.10); IMMATURE GRAN PERCENT AUTO 0 % (0-1); LYMPHOCYTES ABSOLUTE AUTO 1.79 K/mm3 (0.84-5.20); LYMPHOCYTES PERCENT AUTO 19 % (21-46); MONOCYTES ABSOLUTE AUTO 0.95 K/mm3 (0.16-1.47); MONOCYTES PERCENT AUTO 10 % (4-13); Mean Corpuscular HGB 29.1 pg (26.0-34.0); Mean Corpuscular HGB Conc 31.6 g/dL (31.5-36.5); Mean Corpuscular Volume 92 fL (80-100); Mean Platelet Volume 10.6 fL (9.1-12.4); NEUTROPHILS ABSOLUTE AUTO 6.36 K/mm3 (1.96-9.15); NEUTROPHILS PERCENT AUTO 68 % (41-73); Platelet Count 576 K/mm3 (150-400); RDW Standard Deviation 47.4 fL (35.1-46.3); Red Blood Cell Count 3.61 M/mm3 (3.80-5.20)
[2018-10-22 04:50] LABS: Bun/Creatinine Ratio 13.6 (12.0-20.0); Creatinine, Blood 1.54 mg/dL (0.40-1.00); Potassium, Blood 4.4 mmol/L (3.5-5.5)
--- NOTE | 2018-10-22 06:07 | NUR ---
SHIFT SUMMARY PT BEGAN SHIFT WITH C/O SOB. NC @ 2LPM WAS PLACED ON PT WITH DECREASE IN SOB. LATER IN SHIFT PT COMPLAINED OF SOB. PT WAS TX BY RT PER EMAR. PT RESPONDED WELL TO TX. PT CURRENTLY SLEEPING IN NO DISTRESS. CALL LIGHT IN REACH.
[2018-10-22] MEDS ORDERED: ACET325 PO (14:32)
[2018-10-22] MEDS ORDERED: ASPI81CH PO (14:33)
[2018-10-22] MEDS ORDERED: AMLO5 PO (14:33)
[2018-10-22] MEDS ORDERED: CARV6.25 PO (14:35)
[2018-10-22] MEDS ORDERED: CLIN300 PO (14:35)
[2018-10-22] MEDS ORDERED: FURO20 PO (14:36)
[2018-10-22] MEDS ORDERED: SPIR25 PO (14:37)
[2018-10-22] MEDS ORDERED: SENN187 PO (14:37)
[2018-10-22] MEDS ORDERED: PARO20 PO (14:37)
[2018-10-22] MEDS ORDERED: ALBU90OI INH (14:38)
--- NOTE | 2018-10-22 16:30 | NUR ---
DURING A CONVERSATION WITH PATIENT SHE VOICED CONCERNS ABOUT HER LIVING SITUATION AND STATED THAT HER PREVIOUS ANXIETY AT THE START OF THIS HOSPITAL STAY WAS R/T HER ACUTE ILLNESS COUPLED WITH LIVING WITH HER DAUGHTER AND DAUGHTER'S BOYFRIEND WHOM SHE DOES NOT GET ALONG WITH. PT STATES THAT HER AND THE BOYFRIEND OFTEN ARGUE AND THAT HER LIVING SITUATION IS NOT WHAT SHE WOULD CHOOSE IF SHE HAD ANOTHER ALTERNATIVE. PT DAUGHTER WAS ALSO HEARD LOUDLY DISCUSSING NOT HAVING ENOUGH MONEY TO PAY THE RENT AND OTHER BILLS. WHEN LATER ASKED ABOUT THIS INTERACTION WITH HER DAUGHTER PT STATED THAT SHE IS OFTEN TALKED TO IN THIS MANNER BUT "I JUST LET IT GO IN ONE EAR AND OUT THE OTHER, MY DAUGHTER IS VERY STRESSED OUT". WHEN ASKED IF PT FEELS SAFE AT HOME SHE SAID SHE DOES. PT REPORTED TO THIS NURSE THAT HER DAUGHTER IS SIMPLY HER ROOMATE BUT NOT HER CAREGIVER AND THE DAUGHTER CONFIRMED THIS DURING A PHONE CONVERSATION. PT ALSO REPORTED THAT IN ADDITION TO HAVING MONEY ISSUES WITH RENT AND BILLS SHE MORE OFTEN THAN NOT CANNOT AFFORD TO PAY FOR HER DIABETIC SUPPLIES AND THEREFORE IS NOT ALWAYS AWARE OF HER CBGS AND HAS POOR BLOOD SUGAR CONTROL BECAUSE OF THIS. PT HAS REQUESTED ON MULTIPLE OCCASIONS TO GO TO SNF AFTER DC FROM [facility] TO REGAIN HER STRENGTH, OBTAIN MEDICATION AND DIABETIC MANAGEMENT, THIS REQUEST WAS SHARED WITH DR MELO WHO AGREED HER NEED FOR ADDED SUPPORT. CASE MANAGEMENT AND CHARGE NURSE HAVE BEEN MADE AWARE AND PT IS SCHEDULED TO DC TO [facility] TOMORROW. PER CASE MANAGEMENT RECOMENDATION APS WAS NOTIFIED OF FAMILY DYNAMICS AND MADE NOTE OF IT. PT STATES SHE IS THANKFUL FOR HER CARE HERE AT [facility] AND TO GO TO REHAB TO GET STRONGER BEFORE RETURNING HOME.
--- NOTE | 2018-10-22 17:38 | NUR ---
SHIFT SUMMARY: PT HAS BEEN A/O X 3-4 THIS SHIFT WITH NO C/O PAIN. SHE HAS BEEN RESTING IN BED. PT CONTINUES TO NEED X 1 ASSIST TO THE BSC. CASE MANAGEMENT HAS COORDINATED HER DC TO [facility] TOMORROW. PT IS AGREEABLE TO CURRENT TX PLAN AND DAUGHTER IS AWARE.
[2018-10-23 04:37] LABS: BASOPHILS ABSOLUTE AUTO 0.06 K/mm3 (0.00-0.23); BASOPHILS PERCENT AUTO 1 % (0-2); EOSINOPHILS ABSOLUTE AUTO 0.24 K/mm3 (0.00-0.68); EOSINOPHILS PERCENT AUTO 3 % (0-6); Hematocrit 32.4 % (33.0-51.0); Hemoglobin 10.6 g/dL (11.5-16.0); IMMATURE GRAN ABSOLUTE AUTO 0.02 K/mm3 (0.00-0.10); IMMATURE GRAN PERCENT AUTO 0 % (0-1); LYMPHOCYTES ABSOLUTE AUTO 1.84 K/mm3 (0.84-5.20); LYMPHOCYTES PERCENT AUTO 23 % (21-46); MONOCYTES ABSOLUTE AUTO 0.78 K/mm3 (0.16-1.47); MONOCYTES PERCENT AUTO 10 % (4-13); Mean Corpuscular HGB 29.9 pg (26.0-34.0); Mean Corpuscular HGB Conc 32.7 g/dL (31.5-36.5); Mean Corpuscular Volume 91 fL (80-100); Mean Platelet Volume 10.7 fL (9.1-12.4); NEUTROPHILS ABSOLUTE AUTO 4.99 K/mm3 (1.96-9.15); NEUTROPHILS PERCENT AUTO 63 % (41-73); Platelet Count 603 K/mm3 (150-400); Red Blood Cell Count 3.55 M/mm3 (3.80-5.20); White Blood Cell Count 7.93 K/mm3 (4.00-11.30)
[2018-10-23 04:53] LABS: Bun/Creatinine Ratio 13.4 (12.0-20.0); Calcium, Blood 9.1 mg/dL (8.5-10.1); Creatinine, Blood 1.42 mg/dL (0.40-1.00); Potassium, Blood 4.1 mmol/L (3.5-5.5)
--- NOTE | 2018-10-23 07:40 | NUR ---
NOC SHIFT SUMMARY PT ADMITTED FOR CELLULITIS OF R LEG WHICH IS IMPROVING. HAS BEEN CHANGED TO ORAL ABX. SHE HAS SLEPT FOR MOST OF THE NIGHT AND HAD DENIES ANY NEEDS OR PAIN. NO ACUTE CHANGES NOTED. REPORT TO ONCOMING RN.
--- NOTE | 2018-10-23 12:03 | NUR ---
REPORT CALLED TO PHAM AT [facility]. TRANSPORTER HERE TO PICK PT UP AT 1120. 1 PERSON ASSIST TO W/C. TO CURB WITH DIRECTOR GLOBAL DEVELOPMENT. PAPERWORK HANDED TO FOUNTAIN VENDING MECHANIC.
== END 2018-10-23 11:20 | DRG 602 ==
LOC: ER 02:17 → MEDS 08:17
PROVIDERS: Emergency Medicine; Family Medicine; Internal Medicine Endocrinology, Diabetes & Metabolism; Pharmacist; Student in an Organized Health Care Education/Training Program; ADMIT Internal Medicine Gastroenterology
DX: L03.115 Cellulitis of right lower limb (principal); I50.23 Acute on chronic systolic (congestive) heart failure; I13.0 Hypertensive heart and chronic kidney disease with heart failure and stage 1 through stage 4 chronic kidney disease, or unspecified chronic kidney disease; N17.9 Acute kidney failure, unspecified; E46 Unspecified protein-calorie malnutrition; E11.22 Type 2 diabetes mellitus with diabetic chronic kidney disease; E11.65 Type 2 diabetes mellitus with hyperglycemia; N18.3 Chronic kidney disease, stage 3 (moderate); E88.09 Other disorders of plasma-protein metabolism, not elsewhere classified; I27.20 Pulmonary hypertension, unspecified; I34.0 Nonrheumatic mitral (valve) insufficiency; B95.61 Methicillin susceptible Staphylococcus aureus infection as the cause of diseases classified elsewhere; E78.5 Hyperlipidemia, unspecified; D63.1 Anemia in chronic kidney disease
CPT/HCPCS: 36415; 71045; 73620; 73718; 80048; 80053; 80069; 80202; 82043; 82570; 82947; 83605; 83735; 85025; 85610; 87040; 87070; 87077; 87147; 87186; 87205; 93306; 93971; 94640; 94760; 94761; 94762; 96365; 96367; 97110; 97116; 97161; 97165; 97535; 99284-25; A9270; A9270-GY; J1650; J1940; J2405; J2543; J3010; J3370; J3480; J7030; J7050

== ENCOUNTER 2018-12-10 16:55 | Emergency (ER) | payer OTHER ==
[~2018-12-10] VITALS: Ht 160 cm; Wt 56.7 kg
[~2018-12-10 16:55] MED LIST changes: +ACET325 PO; +ALBU90OI INH; +AMLO5 PO; +ASPI81CH PO; +CARV6.25 PO; +CLIN300 PO; +FURO20 PO; +PARO20 PO; +SENN187 PO; +SPIR25 PO
[2018-12-10 17:48] LABS: BASOPHILS ABSOLUTE AUTO 0.06 K/mm3 (0.00-0.23); BASOPHILS PERCENT AUTO 1 % (0-2); EOSINOPHILS PERCENT AUTO 3 % (0-6); Hemoglobin 11.4 g/dL (11.5-16.0); IMMATURE GRAN ABSOLUTE AUTO 0.03 K/mm3 (0.00-0.10); IMMATURE GRAN PERCENT AUTO 0 % (0-1); LYMPHOCYTES ABSOLUTE AUTO 3.18 K/mm3 (0.84-5.20); LYMPHOCYTES PERCENT AUTO 34 % (21-46); MONOCYTES ABSOLUTE AUTO 0.85 K/mm3 (0.16-1.47); MONOCYTES PERCENT AUTO 9 % (4-13); Mean Corpuscular HGB 28.6 pg (26.0-34.0); Mean Corpuscular HGB Conc 32.6 g/dL (31.5-36.5); Mean Corpuscular Volume 88 fL (80-100); Mean Platelet Volume 11.3 fL (9.1-12.4); NEUTROPHILS ABSOLUTE AUTO 4.95 K/mm3 (1.96-9.15); NEUTROPHILS PERCENT AUTO 53 % (41-73); Platelet Count 371 K/mm3 (150-400); RDW Coefficient Variation 14.4 % (11.7-14.2); RDW Standard Deviation 46.1 fL (35.1-46.3); Red Blood Cell Count 3.98 M/mm3 (3.80-5.20); White Blood Cell Count 9.37 K/mm3 (4.00-11.30)
[2018-12-10 18:10] LABS: Albumin/Globulin Ratio 0.6 (0.8-1.8); Bilirubin, Total 0.4 mg/dL (0.1-1.0); Bun/Creatinine Ratio 32.2 (12.0-20.0); Calcium, Blood 9.6 mg/dL (8.5-10.1); Creatinine, Blood 1.49 mg/dL (0.40-1.00); Globulin, Blood 4.8 g/dL (2.2-4.0); Potassium, Blood 4.3 mmol/L (3.5-5.5); Total Protein, Blood 7.8 g/dL (6.4-8.2)
== END 2018-12-10 19:49 | disposition home or self-care (01) ==
LOC: ER 16:55
PROVIDERS: Emergency Medicine
DX: R55 Syncope and collapse (principal); I12.9 Hypertensive chronic kidney disease with stage 1 through stage 4 chronic kidney disease, or unspecified chronic kidney disease; E11.22 Type 2 diabetes mellitus with diabetic chronic kidney disease; N18.9 Chronic kidney disease, unspecified; Z79.899 Other long term (current) drug therapy; Z79.4 Long term (current) use of insulin; Z79.82 Long term (current) use of aspirin
CPT/HCPCS: 80053; 85025; 93005; 93010; 99285-25

== ENCOUNTER 2019-01-27 14:05 | Observation (INO) | payer OTHER ==
[~2019-01-27] VITALS: Ht 160 cm; Wt 55.4 kg
[~2019-01-27 14:05] MED LIST changes: -ACET325 PO; +ARTHRITIS PAIN650 MG PO; -ASPI81CH PO; +Aspir 8181 MG PO; -CHOL10002 PO; +VITAMIN D31000 UNI2 PO
[2019-01-27 14:43] LABS: Source, Urine Catheter
[2019-01-27 14:51] LABS: BASOPHILS ABSOLUTE AUTO 0.08 K/mm3 (0.00-0.23); BASOPHILS PERCENT AUTO 1 % (0-2); EOSINOPHILS ABSOLUTE AUTO 0.08 K/mm3 (0.00-0.68); EOSINOPHILS PERCENT AUTO 1 % (0-6); Hematocrit 38.1 % (33.0-51.0); Hemoglobin 12.6 g/dL (11.5-16.0); IMMATURE GRAN ABSOLUTE AUTO 0.02 K/mm3 (0.00-0.10); IMMATURE GRAN PERCENT AUTO 0 % (0-1); LYMPHOCYTES ABSOLUTE AUTO 3.65 K/mm3 (0.84-5.20); LYMPHOCYTES PERCENT AUTO 37 % (21-46); MONOCYTES ABSOLUTE AUTO 0.78 K/mm3 (0.16-1.47); MONOCYTES PERCENT AUTO 8 % (4-13); Mean Corpuscular HGB 28.8 pg (26.0-34.0); Mean Corpuscular HGB Conc 33.1 g/dL (31.5-36.5); Mean Corpuscular Volume 87 fL (80-100); Mean Platelet Volume 11.1 fL (9.1-12.4); NEUTROPHILS PERCENT AUTO 53 % (41-73); Platelet Count 439 K/mm3 (150-400); RDW Coefficient Variation 14.3 % (11.7-14.2); RDW Standard Deviation 45.2 fL (35.1-46.3); Red Blood Cell Count 4.38 M/mm3 (3.80-5.20); White Blood Cell Count 9.81 K/mm3 (4.00-11.30)
[2019-01-27 15:04] LABS: Bilirubin, Urine Neg (Neg); Blood, Urine 1+ (Neg); Glucose Qualitative, Urine 4+ (Neg); Ketones, Urine Neg (Neg); Leukocyte Esterase, Urine Neg (Neg); Nitrite, Urine Neg (Neg); Protein, Urine 4+ (Neg); Specific Gravity, Urine 1.015 (1.003-1.022); Urobilinogen, Urine NORM (Normal)
[2019-01-27 15:10] LABS: Alanine Aminotransfer (ALT/SGP 17 U/L (12-78); Albumin, Blood 2.7 g/dL (3.4-5.0); Albumin/Globulin Ratio 0.5 (0.8-1.8); Alk Phos 166 U/L (50-136); Anion Gap 8 mmol/L (6-16); Aspartate Aminotrans (AST/SGOT 11 U/L (12-37); Bilirubin, Total 0.1 mg/dL (0.1-1.0); Blood Urea Nitrogen 42 mg/dL (8-24); CO2, Blood 26 mmol/L (21-32); Calcium, Blood 9.9 mg/dL (8.5-10.1); Chloride, Blood 103 mmol/L (98-108); Creatinine, Blood 1.45 mg/dL (0.40-1.00); Ethanol (Alcohol), Blood, Med <3 mg/dL; Globulin, Blood 5.1 g/dL (2.2-4.0); Glomerular Filtration Rate 38 (60-); Glucose, Blood 194 mg/dL (70-99); Potassium, Blood 3.9 mmol/L (3.5-5.5); Sodium, Blood 137 mmol/L (136-145); Total Protein, Blood 7.8 g/dL (6.4-8.2)
[2019-01-27 15:16] LABS: Appearance, Urine Clear (Clear); Color, Urine Yellow (P-Yellow); U Amphetamine Screen Not Detected; U Barbituate Screen Not Detected; U Benzodiazapine Screen Not Detected; U Buprenorphine Screen Not Detected; U Cannabinoids Screen Not Detected; U Cocaine Screen Not Detected; U Methadone Screen Not Detected; U Methamphetamine Screen Not Detected; U Opiates Screen Not Detected; U Oxycodone Screen Not Detected; U Phencyclidine Screen Not Detected; U Propoxyphene Screen Not Detected
[2019-01-27 15:18] LABS: Hyaline Casts 0-2 /lpf (0-2); White Blood Cells, Urine 0-2 /hpf (0-5)
[2019-01-27 15:19] LABS: Bacteria Few /hpf; Squamous Epithelial Cells Few /hpf (Few)
[2019-01-27] MEDS ORDERED: NOVOLOG FL100 UNIT/1 SC (17:15)
[2019-01-28 04:16] LABS: BASOPHILS ABSOLUTE AUTO 0.07 K/mm3 (0.00-0.23); BASOPHILS PERCENT AUTO 1 % (0-2); EOSINOPHILS ABSOLUTE AUTO 0.15 K/mm3 (0.00-0.68); EOSINOPHILS PERCENT AUTO 2 % (0-6); Hematocrit 35.9 % (33.0-51.0); Hemoglobin 12.1 g/dL (11.5-16.0); IMMATURE GRAN ABSOLUTE AUTO 0.02 K/mm3 (0.00-0.10); IMMATURE GRAN PERCENT AUTO 0 % (0-1); LYMPHOCYTES ABSOLUTE AUTO 3.83 K/mm3 (0.84-5.20); LYMPHOCYTES PERCENT AUTO 44 % (21-46); MONOCYTES PERCENT AUTO 8 % (4-13); Mean Corpuscular HGB 29.9 pg (26.0-34.0); Mean Corpuscular HGB Conc 33.7 g/dL (31.5-36.5); Mean Corpuscular Volume 89 fL (80-100); Mean Platelet Volume 10.9 fL (9.1-12.4); NEUTROPHILS ABSOLUTE AUTO 3.89 K/mm3 (1.96-9.15); NEUTROPHILS PERCENT AUTO 45 % (41-73); Platelet Count 387 K/mm3 (150-400); RDW Coefficient Variation 14.6 % (11.7-14.2); RDW Standard Deviation 47.6 fL (35.1-46.3); Red Blood Cell Count 4.05 M/mm3 (3.80-5.20); White Blood Cell Count 8.66 K/mm3 (4.00-11.30)
[2019-01-28 04:47] LABS: Bun/Creatinine Ratio 29.5 (12.0-20.0); Calcium, Blood 8.8 mg/dL (8.5-10.1); Creatinine, Blood 1.49 mg/dL (0.40-1.00); Potassium, Blood 4.3 mmol/L (3.5-5.5)
--- NOTE | 2019-01-28 07:53 | NUR ---
a+o, rm air, saline locked, denies pain, resting but easily roused, santo appropriatly bsr shared with day staff and pt
--- NOTE | 2019-01-28 18:04 | NUR ---
SHIFT NOTE PT ALERT, ORIENTED TO SELF ONLY. THIS AM PT WAS FIXATED ON FINDING HER PURSE AND CELL PHONE THAT SHE INSISTED WERE IN THE ROOM, CONTACTED ANABEL HE THAT PT LIVES WITH WHO STS THAT PURSE AND CELL PHONE ARE AT HOME, PT IS UPDATED ON THIS AND APPEARS TO CALM. PT HAD TO BE REMINDED OF LIMITATIONS NUMEROUS TIMES THIS AM, PT WAS FORGETFUL AND WAS NOT ABLE TO RECALL ANY TEACHING FOR A GREAT DEAL OF TIME. PT WENT TO SLEEP AROUND 1130 AND SLEPT UNTIL ANABEL ARRIVED WITH HER PURSE AROUND 1400, PT THEN SLEPT UNTIL DINNER TIME. PT IS NOW AWAKE, IS SPONTANEOUS BUT REDIRECTABLE.
--- NOTE | 2019-01-28 18:54 | NUR ---
REPORT TO CARMELO TOMLINSON
--- NOTE | 2019-01-28 19:37 | NUR ---
1925 PT TRANSFERRED TO ROOM 349 PER WHEELCHAIR WITH ALL PERSONAL BELONGINGS. PRIOR SHIFT NURSE HAD GIVEN REPORT TO DAVI RHODES.
--- NOTE | 2019-01-29 05:12 | NUR ---
SHIFT SUMMARY- PT. TRANSFERRED INTO ROOM FROM [facility] @1930. PLEASANTLY CONFUSED T/O THE NIGHT. PT. IMPULSIVE, SEVERAL ATTEMPTS MADE TO GET OUT OF BED DURING THE NIGHT, IS VERY UNSTEADY ON HER FEET. PT. IS 1 ASSIST TO BATHROOM. DENIED ANY PAIN OR DISCOMFORT T/O THE SHIFT. NO APPARENT DISTRESS NOTED. CALL LIGHT WITHIN REACH, SIDE RAILS UP X2, AND BED ALARM ON FOR SAFETY. WILL CONT TO MONITOR.
--- NOTE | 2019-01-29 13:12 | NUR ---
PATIENT DISCHARGED WITH FAMILY. NO ACUTE ISSUES NOTED. LASHAY VALDIVIA WHEELED PATIENT TO FAMILY VEHICLE. PATIENT AND FAMILY MEMBERS GOT SELF INTO HIS VEHICLE.
--- NOTE | 2019-01-29 13:47 | NUR ---
PT DISCHARGED FROM UNIT. DISCUSSED CURRENT BLOOD SUGAR LEVEL AND ADVISED TO MEDICATE WITH MEAL
--- NOTE | 2019-01-29 18:00 | NUR ---
WHEN CLEANING OUT PT DRAWER FOUND PERSONAL MEDICATIONS. NOTED TO INCLUDE INSULIN AND GLUCOMETER STRIPS. CALLED FAMILY AND REQUESTED THAT THEY RETURN TO FACILITY TO BOAT CANVAS MAKER INSTALLER MEDICATIONS. CARMELO CALLED FAMILY AND DISCUSSED CONCERNS ABOUT PTS ELEVATED BLOOD SUGAR LEVEL AND THE LACK OF MEDICATIONS TO COVER HER BLOOD SUGAR LEVELS. FAMILY STATED THAT THEY WOULD COME BACK FOR SUPPLIES AND TO MEDICATE PER HER SLIDING SCALE.
== END 2019-01-29 12:40 | disposition home or self-care (01) ==
LOC: ER 14:05 → PCU 14:06 → ER 19:58 → PCU 19:58 → MEDS 01-28 19:30
PROVIDERS: Emergency Medicine; ADMIT Hospitalist
DX: G93.40 Encephalopathy, unspecified (principal); E11.9 Type 2 diabetes mellitus without complications; I10 Essential (primary) hypertension; E78.5 Hyperlipidemia, unspecified; Z87.820 Personal history of traumatic brain injury; Z79.82 Long term (current) use of aspirin; Z79.4 Long term (current) use of insulin
CPT/HCPCS: 36415; 70450; 71046; 80048; 80053; 81001; 82947; 85025; 87040; 90686; 93005; 93010; 96372; 96374; 99285-25; G0008; G0378; G0480; J1650; J2310

== ENCOUNTER 2019-02-04 15:19 | Emergency (ER) | payer OTHER ==
[~2019-02-04] VITALS: Ht 160 cm; Wt 59.4 kg
[2019-02-04 16:04] LABS: BASOPHILS ABSOLUTE AUTO 0.07 K/mm3 (0.00-0.23); BASOPHILS PERCENT AUTO 1 % (0-2); EOSINOPHILS ABSOLUTE AUTO 0.27 K/mm3 (0.00-0.68); EOSINOPHILS PERCENT AUTO 2 % (0-6); Hemoglobin 12.6 g/dL (11.5-16.0); IMMATURE GRAN ABSOLUTE AUTO 0.05 K/mm3 (0.00-0.10); IMMATURE GRAN PERCENT AUTO 0 % (0-1); LYMPHOCYTES PERCENT AUTO 33 % (21-46); MONOCYTES ABSOLUTE AUTO 1.18 K/mm3 (0.16-1.47); MONOCYTES PERCENT AUTO 9 % (4-13); Mean Corpuscular HGB 30.1 pg (26.0-34.0); Mean Corpuscular HGB Conc 33.2 g/dL (31.5-36.5); Mean Corpuscular Volume 91 fL (80-100); Mean Platelet Volume 10.6 fL (9.1-12.4); NEUTROPHILS PERCENT AUTO 55 % (41-73); Platelet Count 492 K/mm3 (150-400); RDW Coefficient Variation 14.7 % (11.7-14.2); RDW Standard Deviation 49.1 fL (35.1-46.3); Red Blood Cell Count 4.19 M/mm3 (3.80-5.20); White Blood Cell Count 13.17 K/mm3 (4.00-11.30)
[2019-02-04 16:20] LABS: Alanine Aminotransfer (ALT/SGP 23 U/L (12-78); Albumin, Blood 2.9 g/dL (3.4-5.0); Albumin/Globulin Ratio 0.6 (0.8-1.8); Alk Phos 158 U/L (50-136); Anion Gap 5 mmol/L (6-16); Aspartate Aminotrans (AST/SGOT 25 U/L (12-37); Bilirubin, Total 0.3 mg/dL (0.1-1.0); Blood Urea Nitrogen 26 mg/dL (8-24); Bun/Creatinine Ratio 16.9 (12.0-20.0); CO2, Blood 28 mmol/L (21-32); Calcium, Blood 9.2 mg/dL (8.5-10.1); Chloride, Blood 106 mmol/L (98-108); Creatinine, Blood 1.54 mg/dL (0.40-1.00); Globulin, Blood 5.2 g/dL (2.2-4.0); Glomerular Filtration Rate 36 (60-); Glucose, Blood 56 mg/dL (70-99); Potassium, Blood 3.4 mmol/L (3.5-5.5); Sodium, Blood 139 mmol/L (136-145); Total Protein, Blood 8.1 g/dL (6.4-8.2)
[2019-02-04 16:21] LABS: Ethanol (Alcohol), Blood, Med <3 mg/dL
[2019-02-04 16:28] LABS: Source, Urine Catheter
[2019-02-04 16:37] LABS: Bilirubin, Urine Neg (Neg); Blood, Urine Neg (Neg); Glucose Qualitative, Urine 4+ (Neg); Ketones, Urine Neg (Neg); Leukocyte Esterase, Urine Neg (Neg); Nitrite, Urine Neg (Neg); Protein, Urine 4+ (Neg); Urobilinogen, Urine NORM (Normal)
[2019-02-04 16:47] LABS: Appearance, Urine Clear (Clear); Color, Urine Yellow (P-Yellow)
[2019-02-04 16:48] LABS: Red Blood Cells, Urine 0-2 /hpf (0-2)
[2019-02-04 16:49] LABS: Bacteria Few /hpf; Squamous Epithelial Cells Few /hpf (Few)
[2019-02-04 16:52] LABS: U Amphetamine Screen Not Detected; U Barbituate Screen Not Detected; U Benzodiazapine Screen Not Detected; U Buprenorphine Screen Not Detected; U Cannabinoids Screen Not Detected; U Cocaine Screen Not Detected; U Methadone Screen Not Detected; U Methamphetamine Screen Not Detected; U Opiates Screen Not Detected; U Oxycodone Screen Not Detected; U Phencyclidine Screen Not Detected; U Propoxyphene Screen Not Detected
== END 2019-02-04 19:37 | disposition home or self-care (01) ==
LOC: ER 15:19
PROVIDERS: Emergency Medicine
DX: R41.0 Disorientation, unspecified (principal); E11.22 Type 2 diabetes mellitus with diabetic chronic kidney disease; I12.9 Hypertensive chronic kidney disease with stage 1 through stage 4 chronic kidney disease, or unspecified chronic kidney disease; N18.9 Chronic kidney disease, unspecified; Z79.899 Other long term (current) drug therapy; Z79.4 Long term (current) use of insulin; Z79.82 Long term (current) use of aspirin
CPT/HCPCS: 71046; 80053; 81001; 82947; 85025; 93005; 93010; 96360; 96361; 99285-25; G0480; J7120

== ENCOUNTER 2019-02-19 15:29 | Emergency (ER) | payer OTHER ==
[~2019-02-19] VITALS: Ht 167.6 cm; Wt 68.0 kg
[2019-02-19 15:58] LABS: BASOPHILS ABSOLUTE AUTO 0.09 K/mm3 (0.00-0.23); BASOPHILS PERCENT AUTO 1 % (0-2); EOSINOPHILS ABSOLUTE AUTO 0.22 K/mm3 (0.00-0.68); EOSINOPHILS PERCENT AUTO 3 % (0-6); Hematocrit 32.8 % (33.0-51.0); Hemoglobin 10.8 g/dL (11.5-16.0); IMMATURE GRAN ABSOLUTE AUTO 0.01 K/mm3 (0.00-0.10); IMMATURE GRAN PERCENT AUTO 0 % (0-1); LYMPHOCYTES ABSOLUTE AUTO 2.89 K/mm3 (0.84-5.20); LYMPHOCYTES PERCENT AUTO 34 % (21-46); MONOCYTES ABSOLUTE AUTO 0.75 K/mm3 (0.16-1.47); MONOCYTES PERCENT AUTO 9 % (4-13); Mean Corpuscular HGB 29.6 pg (26.0-34.0); Mean Corpuscular HGB Conc 32.9 g/dL (31.5-36.5); Mean Corpuscular Volume 90 fL (80-100); Mean Platelet Volume 10.3 fL (9.1-12.4); NEUTROPHILS ABSOLUTE AUTO 4.53 K/mm3 (1.96-9.15); NEUTROPHILS PERCENT AUTO 53 % (41-73); Platelet Count 391 K/mm3 (150-400); RDW Coefficient Variation 14.5 % (11.7-14.2); RDW Standard Deviation 47.8 fL (35.1-46.3); Red Blood Cell Count 3.65 M/mm3 (3.80-5.20); White Blood Cell Count 8.49 K/mm3 (4.00-11.30)
[2019-02-19 16:14] LABS: Albumin, Blood 2.7 g/dL (3.4-5.0); Albumin/Globulin Ratio 0.6 (0.8-1.8); Bilirubin, Total 0.2 mg/dL (0.1-1.0); Bun/Creatinine Ratio 35.8 (12.0-20.0); Calcium, Blood 9.3 mg/dL (8.5-10.1); Creatinine, Blood 1.23 mg/dL (0.40-1.00); Globulin, Blood 4.6 g/dL (2.2-4.0); Potassium, Blood 4.2 mmol/L (3.5-5.5); Total Protein, Blood 7.3 g/dL (6.4-8.2)
[2019-02-19 16:21] LABS: Beta-hydroxybutyrate 0.7 mg/dL (0.2-2.8)
[2019-02-19 16:54] LABS: Source, Urine Clean Catch
[2019-02-19 16:59] LABS: Bilirubin, Urine Neg (Neg); Blood, Urine 1+ (Neg); Glucose Qualitative, Urine 4+ (Neg); Ketones, Urine Neg (Neg); Leukocyte Esterase, Urine Neg (Neg); Nitrite, Urine Neg (Neg); Protein, Urine 4+ (Neg); Specific Gravity, Urine 1.015 (1.003-1.022); Urobilinogen, Urine NORM (Normal)
[2019-02-19 17:12] LABS: Appearance, Urine Clear (Clear); Color, Urine Yellow (P-Yellow)
[2019-02-19 17:14] LABS: White Blood Cells, Urine 0-2 /hpf (0-5)
[2019-02-19 17:15] LABS: Bacteria Few /hpf; Red Blood Cells, Urine 0-2 /hpf (0-2); Squamous Epithelial Cells Mod /hpf (Few)
== END 2019-02-19 18:13 | disposition home or self-care (01) ==
LOC: ER 15:29
PROVIDERS: Emergency Medicine
DX: T38.3X1A Poisoning by insulin and oral hypoglycemic [antidiabetic] drugs, accidental (unintentional), initial encounter (principal); E11.9 Type 2 diabetes mellitus without complications; I10 Essential (primary) hypertension; Z79.899 Other long term (current) drug therapy; Z79.4 Long term (current) use of insulin
CPT/HCPCS: 80053; 81001; 82010; 82947; 85025; 99283

== ENCOUNTER 2019-02-25 12:39 | Emergency (ER) | payer OTHER ==
[~2019-02-25] VITALS: Ht 160 cm; Wt 59.0 kg
[2019-02-25] MEDS ORDERED: LOSARTAN POTASS25 M2 PO (12:48)
[2019-02-25] MEDS ORDERED: ATORVASTATIN CA40 MG PO (12:49)
[2019-02-25 13:21] LABS: BASOPHILS ABSOLUTE AUTO 0.07 K/mm3 (0.00-0.23); BASOPHILS PERCENT AUTO 1 % (0-2); EOSINOPHILS PERCENT AUTO 2 % (0-6); Hematocrit 37.4 % (33.0-51.0); Hemoglobin 12.1 g/dL (11.5-16.0); IMMATURE GRAN ABSOLUTE AUTO 0.03 K/mm3 (0.00-0.10); IMMATURE GRAN PERCENT AUTO 0 % (0-1); LYMPHOCYTES ABSOLUTE AUTO 3.12 K/mm3 (0.84-5.20); LYMPHOCYTES PERCENT AUTO 33 % (21-46); MONOCYTES ABSOLUTE AUTO 1.01 K/mm3 (0.16-1.47); MONOCYTES PERCENT AUTO 11 % (4-13); Mean Corpuscular HGB 29.4 pg (26.0-34.0); Mean Corpuscular HGB Conc 32.4 g/dL (31.5-36.5); Mean Corpuscular Volume 91 fL (80-100); Mean Platelet Volume 10.4 fL (9.1-12.4); NEUTROPHILS ABSOLUTE AUTO 5.12 K/mm3 (1.96-9.15); NEUTROPHILS PERCENT AUTO 54 % (41-73); Platelet Count 435 K/mm3 (150-400); RDW Coefficient Variation 14.3 % (11.7-14.2); Red Blood Cell Count 4.12 M/mm3 (3.80-5.20); White Blood Cell Count 9.55 K/mm3 (4.00-11.30)
[2019-02-25 13:44] LABS: Albumin, Blood 2.7 g/dL (3.4-5.0); Albumin/Globulin Ratio 0.6 (0.8-1.8); Bilirubin, Total 0.2 mg/dL (0.1-1.0); Bun/Creatinine Ratio 27.3 (12.0-20.0); Calcium, Blood 9.4 mg/dL (8.5-10.1); Creatinine, Blood 1.39 mg/dL (0.40-1.00); Globulin, Blood 4.7 g/dL (2.2-4.0); Potassium, Blood 4.2 mmol/L (3.5-5.5); Total Protein, Blood 7.4 g/dL (6.4-8.2)
[2019-02-25] MEDS ORDERED: ULTRA-LIGHT RO1 EACH MC (15:21)
== END 2019-02-25 15:38 | disposition home or self-care (01) ==
LOC: ER 12:39
PROVIDERS: Emergency Medicine
DX: R53.1 Weakness (principal); R42 Dizziness and giddiness; R29.6 Repeated falls; E11.22 Type 2 diabetes mellitus with diabetic chronic kidney disease; I12.9 Hypertensive chronic kidney disease with stage 1 through stage 4 chronic kidney disease, or unspecified chronic kidney disease; N18.9 Chronic kidney disease, unspecified; Z79.4 Long term (current) use of insulin; Z79.899 Other long term (current) drug therapy
CPT/HCPCS: 80053; 85025; 93005; 93010; 99285-25

== ENCOUNTER 2019-03-16 11:42 | Emergency (ER) | payer OTHER ==
[~2019-03-16] VITALS: Ht 160 cm; Wt 59.0 kg
[~2019-03-16 11:42] MED LIST changes: +ATORVASTATIN CA40 MG PO; +LOSARTAN POTASS25 M2 PO; +ULTRA-LIGHT RO1 EACH MC
[2019-03-16 12:00] LABS: BASOPHILS ABSOLUTE AUTO 0.08 K/mm3 (0.00-0.23); BASOPHILS PERCENT AUTO 1 % (0-2); EOSINOPHILS ABSOLUTE AUTO 0.07 K/mm3 (0.00-0.68); EOSINOPHILS PERCENT AUTO 1 % (0-6); Hematocrit 36.7 % (33.0-51.0); Hemoglobin 12.2 g/dL (11.5-16.0); IMMATURE GRAN ABSOLUTE AUTO 0.01 K/mm3 (0.00-0.10); IMMATURE GRAN PERCENT AUTO 0 % (0-1); LYMPHOCYTES ABSOLUTE AUTO 2.83 K/mm3 (0.84-5.20); LYMPHOCYTES PERCENT AUTO 30 % (21-46); MONOCYTES ABSOLUTE AUTO 0.62 K/mm3 (0.16-1.47); MONOCYTES PERCENT AUTO 7 % (4-13); Mean Corpuscular HGB 29.2 pg (26.0-34.0); Mean Corpuscular HGB Conc 33.2 g/dL (31.5-36.5); Mean Corpuscular Volume 88 fL (80-100); Mean Platelet Volume 10.7 fL (9.1-12.4); NEUTROPHILS ABSOLUTE AUTO 5.79 K/mm3 (1.96-9.15); NEUTROPHILS PERCENT AUTO 62 % (41-73); Platelet Count 434 K/mm3 (150-400); RDW Coefficient Variation 13.2 % (11.7-14.2); RDW Standard Deviation 42.5 fL (35.1-46.3); Red Blood Cell Count 4.18 M/mm3 (3.80-5.20)
[2019-03-16 12:20] LABS: Alanine Aminotransfer (ALT/SGP 21 U/L (12-78); Albumin, Blood 2.8 g/dL (3.4-5.0); Albumin/Globulin Ratio 0.6 (0.8-1.8); Alk Phos 170 U/L (50-136); Anion Gap 7 mmol/L (6-16); Aspartate Aminotrans (AST/SGOT 11 U/L (12-37); Bilirubin, Total 0.3 mg/dL (0.1-1.0); Blood Urea Nitrogen 42 mg/dL (8-24); CO2, Blood 24 mmol/L (21-32); Calcium, Blood 9.2 mg/dL (8.5-10.1); Chloride, Blood 102 mmol/L (98-108); Creatinine, Blood 1.68 mg/dL (0.40-1.00); Globulin, Blood 4.9 g/dL (2.2-4.0); Glomerular Filtration Rate 32 (60-); Glucose, Blood 505 mg/dL (70-99); Potassium, Blood 4.6 mmol/L (3.5-5.5); Sodium, Blood 133 mmol/L (136-145); Total Protein, Blood 7.7 g/dL (6.4-8.2)
[2019-03-16 12:33] LABS: Source, Urine Clean Catch
[2019-03-16 12:37] LABS: Bilirubin, Urine Neg (Neg); Blood, Urine 2+ (Neg); Glucose Qualitative, Urine 4+ (Neg); Ketones, Urine Neg (Neg); Leukocyte Esterase, Urine Neg (Neg); Nitrite, Urine Neg (Neg); Protein, Urine 4+ (Neg); Specific Gravity, Urine 1.015 (1.003-1.022); Urobilinogen, Urine NORM (Normal)
[2019-03-16 12:43] LABS: Appearance, Urine Clear (Clear); Color, Urine Pale Yellow (P-Yellow)
[2019-03-16 12:46] LABS: Bacteria Few /hpf; Squamous Epithelial Cells Few /hpf (Few)
== END 2019-03-16 14:29 | disposition home or self-care (01) ==
LOC: ER 11:42
PROVIDERS: Emergency Medicine
DX: E11.65 Type 2 diabetes mellitus with hyperglycemia (principal); I12.9 Hypertensive chronic kidney disease with stage 1 through stage 4 chronic kidney disease, or unspecified chronic kidney disease; E11.22 Type 2 diabetes mellitus with diabetic chronic kidney disease; N18.9 Chronic kidney disease, unspecified; Z91.14 Patient's other noncompliance with medication regimen; Z79.899 Other long term (current) drug therapy; Z79.4 Long term (current) use of insulin; Z79.82 Long term (current) use of aspirin
CPT/HCPCS: 71045; 80053; 81001; 82010; 82800; 82947; 85025; 93005; 93010; 96360; 99285-25; J1815; J7030

== ENCOUNTER 2019-03-23 14:19 | Emergency (ER) | payer OTHER ==
[~2019-03-23] VITALS: Ht 160 cm; Wt 59.0 kg
[2019-03-23 14:47] LABS: BASOPHILS ABSOLUTE AUTO 0.07 K/mm3 (0.00-0.23); BASOPHILS PERCENT AUTO 1 % (0-2); EOSINOPHILS ABSOLUTE AUTO 0.21 K/mm3 (0.00-0.68); EOSINOPHILS PERCENT AUTO 2 % (0-6); Hematocrit 37.9 % (33.0-51.0); Hemoglobin 12.6 g/dL (11.5-16.0); IMMATURE GRAN ABSOLUTE AUTO 0.02 K/mm3 (0.00-0.10); IMMATURE GRAN PERCENT AUTO 0 % (0-1); LYMPHOCYTES PERCENT AUTO 31 % (21-46); MONOCYTES ABSOLUTE AUTO 0.96 K/mm3 (0.16-1.47); MONOCYTES PERCENT AUTO 9 % (4-13); Mean Corpuscular HGB 29.9 pg (26.0-34.0); Mean Corpuscular HGB Conc 33.2 g/dL (31.5-36.5); Mean Corpuscular Volume 90 fL (80-100); Mean Platelet Volume 10.8 fL (9.1-12.4); NEUTROPHILS ABSOLUTE AUTO 5.82 K/mm3 (1.96-9.15); NEUTROPHILS PERCENT AUTO 57 % (41-73); Platelet Count 400 K/mm3 (150-400); RDW Coefficient Variation 13.6 % (11.7-14.2); Red Blood Cell Count 4.21 M/mm3 (3.80-5.20); White Blood Cell Count 10.18 K/mm3 (4.00-11.30)
[2019-03-23 15:04] LABS: Albumin, Blood 2.6 g/dL (3.4-5.0); Albumin/Globulin Ratio 0.6 (0.8-1.8); Bilirubin, Total 0.3 mg/dL (0.1-1.0); Bun/Creatinine Ratio 17.3 (12.0-20.0); Calcium, Blood 9.4 mg/dL (8.5-10.1); Creatinine, Blood 1.68 mg/dL (0.40-1.00); Globulin, Blood 4.4 g/dL (2.2-4.0); Potassium, Blood 4.3 mmol/L (3.5-5.5)
[2019-03-23 17:08] LABS: Source, Urine Clean Catch
[2019-03-23 17:10] LABS: Bilirubin, Urine Neg (Neg); Blood, Urine 1+ (Neg); Glucose Qualitative, Urine 4+ (Neg); Ketones, Urine Neg (Neg); Leukocyte Esterase, Urine Neg (Neg); Nitrite, Urine Neg (Neg); Protein, Urine 4+ (Neg); Urobilinogen, Urine NORM (Normal)
[2019-03-23 17:12] LABS: Appearance, Urine Clear (Clear); Color, Urine Yellow (P-Yellow)
[2019-03-23 17:17] LABS: Bacteria Few /hpf; Red Blood Cells, Urine 0-2 /hpf (0-2); Squamous Epithelial Cells Rare /hpf (Few); White Blood Cells, Urine 0-2 /hpf (0-5)
== END 2019-03-23 19:00 | disposition home or self-care (01) ==
LOC: ER 14:19
PROVIDERS: Emergency Medicine
DX: I12.9 Hypertensive chronic kidney disease with stage 1 through stage 4 chronic kidney disease, or unspecified chronic kidney disease (principal); N18.9 Chronic kidney disease, unspecified; E11.22 Type 2 diabetes mellitus with diabetic chronic kidney disease; R41.82 Altered mental status, unspecified; R51 Headache; Z79.4 Long term (current) use of insulin; Z79.82 Long term (current) use of aspirin; Z79.899 Other long term (current) drug therapy
CPT/HCPCS: 36415; 70450; 80053; 81001; 84484; 85025; 93005; 93010; 99284-25

== ENCOUNTER 2019-03-26 12:21 | Emergency (ER) | payer OTHER ==
[~2019-03-26] VITALS: Ht 160 cm; Wt 59.0 kg
[2019-03-26 14:07] LABS: Source, Urine Catheter
[2019-03-26 14:14] LABS: Bilirubin, Urine Neg (Neg); Blood, Urine 1+ (Neg); Glucose Qualitative, Urine 4+ (Neg); Ketones, Urine Neg (Neg); Leukocyte Esterase, Urine Neg (Neg); Nitrite, Urine Neg (Neg); Protein, Urine 4+ (Neg); Specific Gravity, Urine 1.015 (1.003-1.022); Urobilinogen, Urine NORM (Normal)
[2019-03-26 14:32] LABS: Albumin, Blood 2.3 g/dL (3.4-5.0); Albumin/Globulin Ratio 0.5 (0.8-1.8); Bilirubin, Total 0.2 mg/dL (0.1-1.0); Bun/Creatinine Ratio 18.8 (12.0-20.0); Calcium, Blood 8.8 mg/dL (8.5-10.1); Creatinine, Blood 1.49 mg/dL (0.40-1.00); Globulin, Blood 4.5 g/dL (2.2-4.0); Potassium, Blood 4.6 mmol/L (3.5-5.5); Total Protein, Blood 6.8 g/dL (6.4-8.2)
[2019-03-26 14:36] LABS: Appearance, Urine Hazy (Clear); Color, Urine Yellow (P-Yellow)
[2019-03-26 14:39] LABS: Bacteria Few /hpf; Mucus Mod (0-Heavy); Squamous Epithelial Cells Few /hpf (Few); White Blood Cells, Urine 0-2 /hpf (0-5)
[2019-03-26 15:20] LABS: BASOPHILS ABSOLUTE AUTO 0.08 K/mm3 (0.00-0.23); BASOPHILS PERCENT AUTO 1 % (0-2); EOSINOPHILS ABSOLUTE AUTO 0.19 K/mm3 (0.00-0.68); EOSINOPHILS PERCENT AUTO 2 % (0-6); Hematocrit 36.3 % (33.0-51.0); Hemoglobin 11.8 g/dL (11.5-16.0); IMMATURE GRAN ABSOLUTE AUTO 0.03 K/mm3 (0.00-0.10); IMMATURE GRAN PERCENT AUTO 0 % (0-1); LYMPHOCYTES ABSOLUTE AUTO 2.53 K/mm3 (0.84-5.20); LYMPHOCYTES PERCENT AUTO 26 % (21-46); MONOCYTES ABSOLUTE AUTO 0.87 K/mm3 (0.16-1.47); MONOCYTES PERCENT AUTO 9 % (4-13); Mean Corpuscular HGB 29.4 pg (26.0-34.0); Mean Corpuscular HGB Conc 32.5 g/dL (31.5-36.5); Mean Corpuscular Volume 90 fL (80-100); Mean Platelet Volume 11.7 fL (9.1-12.4); NEUTROPHILS ABSOLUTE AUTO 6.07 K/mm3 (1.96-9.15); NEUTROPHILS PERCENT AUTO 62 % (41-73); Platelet Count 317 K/mm3 (150-400); RDW Coefficient Variation 13.8 % (11.7-14.2); RDW Standard Deviation 45.7 fL (35.1-46.3); Red Blood Cell Count 4.02 M/mm3 (3.80-5.20); White Blood Cell Count 9.77 K/mm3 (4.00-11.30)
== END 2019-03-26 16:05 | disposition home or self-care (01) ==
LOC: ER 12:21
PROVIDERS: Emergency Medicine
DX: R41.0 Disorientation, unspecified (principal); I11.0 Hypertensive heart disease with heart failure; I50.9 Heart failure, unspecified; E11.9 Type 2 diabetes mellitus without complications; E78.5 Hyperlipidemia, unspecified; Z79.899 Other long term (current) drug therapy
CPT/HCPCS: 80053; 81001; 85025; 99283; P9612

== ENCOUNTER 2019-03-27 15:57 | Emergency (ER) | payer OTHER ==
[~2019-03-27] VITALS: Ht 160 cm; Wt 59.0 kg
[2019-03-27 16:32] LABS: BASOPHILS ABSOLUTE AUTO 0.09 K/mm3 (0.00-0.23); BASOPHILS PERCENT AUTO 1 % (0-2); EOSINOPHILS ABSOLUTE AUTO 0.19 K/mm3 (0.00-0.68); EOSINOPHILS PERCENT AUTO 2 % (0-6); Hematocrit 34.7 % (33.0-51.0); Hemoglobin 11.3 g/dL (11.5-16.0); IMMATURE GRAN ABSOLUTE AUTO 0.02 K/mm3 (0.00-0.10); IMMATURE GRAN PERCENT AUTO 0 % (0-1); LYMPHOCYTES ABSOLUTE AUTO 3.11 K/mm3 (0.84-5.20); LYMPHOCYTES PERCENT AUTO 36 % (21-46); MONOCYTES ABSOLUTE AUTO 0.76 K/mm3 (0.16-1.47); MONOCYTES PERCENT AUTO 9 % (4-13); Mean Corpuscular HGB 29.5 pg (26.0-34.0); Mean Corpuscular HGB Conc 32.6 g/dL (31.5-36.5); Mean Corpuscular Volume 91 fL (80-100); Mean Platelet Volume 10.7 fL (9.1-12.4); NEUTROPHILS ABSOLUTE AUTO 4.37 K/mm3 (1.96-9.15); NEUTROPHILS PERCENT AUTO 51 % (41-73); Platelet Count 394 K/mm3 (150-400); RDW Coefficient Variation 13.2 % (11.7-14.2); RDW Standard Deviation 44.3 fL (35.1-46.3); Red Blood Cell Count 3.83 M/mm3 (3.80-5.20); White Blood Cell Count 8.54 K/mm3 (4.00-11.30)
[2019-03-27 16:59] LABS: Alanine Aminotransfer (ALT/SGP 18 U/L (12-78); Albumin, Blood 2.4 g/dL (3.4-5.0); Albumin/Globulin Ratio 0.5 (0.8-1.8); Alk Phos 141 U/L (50-136); Anion Gap 8 mmol/L (6-16); Aspartate Aminotrans (AST/SGOT 17 U/L (12-37); Bilirubin, Total 0.4 mg/dL (0.1-1.0); Blood Urea Nitrogen 32 mg/dL (8-24); Bun/Creatinine Ratio 23.9 (12.0-20.0); CO2, Blood 21 mmol/L (21-32); Calcium, Blood 8.4 mg/dL (8.5-10.1); Chloride, Blood 107 mmol/L (98-108); Creatinine, Blood 1.34 mg/dL (0.40-1.00); Globulin, Blood 4.5 g/dL (2.2-4.0); Glomerular Filtration Rate 42 (60-); Glucose, Blood 279 mg/dL (70-99); Potassium, Blood 4.1 mmol/L (3.5-5.5); Sodium, Blood 136 mmol/L (136-145); Total Protein, Blood 6.9 g/dL (6.4-8.2); Troponin I <0.015 ng/mL (0.000-0.040)
== END 2019-03-27 17:49 | disposition home or self-care (01) ==
LOC: ER 15:57
PROVIDERS: Emergency Medicine
DX: R55 Syncope and collapse (principal); I11.0 Hypertensive heart disease with heart failure; I50.9 Heart failure, unspecified; E11.9 Type 2 diabetes mellitus without complications
CPT/HCPCS: 36415; 80053; 84484; 85025; 93005; 93010; 96360; 99284-25; J7030

== ENCOUNTER 2019-09-05 13:20 | Observation (INO) | payer OTHER ==
[~2019-09-05] VITALS: Ht 160 cm; Wt 54.4 kg
[~2019-09-05 13:20] MED LIST changes: +BASAGLAR K100 UNIT/1 SC; -INSULANPEN SC; -LOSARTAN POTASS25 M2 PO; +NOVOLOG FL100 UNIT/3 SC; +SERT25 PO
[2019-09-05 13:46] LABS: BASOPHILS ABSOLUTE AUTO 0.06 K/mm3 (0.00-0.23); BASOPHILS PERCENT AUTO 1 % (0-2); EOSINOPHILS ABSOLUTE AUTO 0.24 K/mm3 (0.00-0.68); EOSINOPHILS PERCENT AUTO 3 % (0-6); Hematocrit 34.1 % (33.0-51.0); Hemoglobin 10.7 g/dL (11.5-16.0); IMMATURE GRAN ABSOLUTE AUTO 0.02 K/mm3 (0.00-0.10); IMMATURE GRAN PERCENT AUTO 0 % (0-1); LYMPHOCYTES ABSOLUTE AUTO 2.14 K/mm3 (0.84-5.20); LYMPHOCYTES PERCENT AUTO 28 % (21-46); MONOCYTES ABSOLUTE AUTO 0.51 K/mm3 (0.16-1.47); MONOCYTES PERCENT AUTO 7 % (4-13); Mean Corpuscular HGB 28.2 pg (26.0-34.0); Mean Corpuscular HGB Conc 31.4 g/dL (31.5-36.5); Mean Corpuscular Volume 90 fL (80-100); Mean Platelet Volume 11.3 fL (9.1-12.4); NEUTROPHILS ABSOLUTE AUTO 4.81 K/mm3 (1.96-9.15); NEUTROPHILS PERCENT AUTO 62 % (41-73); Platelet Count 375 K/mm3 (150-400); RDW Coefficient Variation 13.7 % (11.7-14.2); RDW Standard Deviation 45.3 fL (35.1-46.3); White Blood Cell Count 7.78 K/mm3 (4.00-11.30)
[2019-09-05 14:07] LABS: Albumin/Globulin Ratio 0.5 (0.8-1.8); Bilirubin, Total 0.2 mg/dL (0.1-1.0); Bun/Creatinine Ratio 12.2 (12.0-20.0); Calcium, Blood 8.2 mg/dL (8.5-10.1); Creatinine, Blood 2.45 mg/dL (0.40-1.00); Globulin, Blood 4.4 g/dL (2.2-4.0); Total Protein, Blood 6.4 g/dL (6.4-8.2)
[2019-09-05 14:11] LABS: Source, Urine Clean Catch
[2019-09-05 14:19] LABS: Bilirubin, Urine Neg (Neg); Blood, Urine 1+ (Neg); Glucose Qualitative, Urine 4+ (Neg); Ketones, Urine Neg (Neg); Leukocyte Esterase, Urine Neg (Neg); Nitrite, Urine Neg (Neg); Protein, Urine 4+ (Neg); Urobilinogen, Urine NORM (Normal); pH, Urine 6.5 (5.0-8.0)
[2019-09-05 14:30] LABS: Appearance, Urine Clear (Clear); Color, Urine Pale Yellow (P-Yellow)
[2019-09-05 14:40] LABS: Red Blood Cells, Urine 0-2 /hpf (0-2); Squamous Epithelial Cells Few /hpf (Few)
[2019-09-05 14:41] LABS: Bacteria Not Seen /hpf
--- NOTE | 2019-09-05 18:02 | NUR ---
PT ARRIVED TO ROOM 308 FROM ER. PT A+O BUT SLOW TO RESPOND. PT HAS GENERALIZED WEAKNESS. SBA OOB. PT VOIDED WELL. PETEY. VSS. PAS PLACED TO BLE. CARDIAC DIET GIVEN. BLOOD SUGARS IMPROVING, SPOT CHECK 240. IV ABX INFUSING. DENIES COUGH,SOB. AFEBRILE. SATS STABLE ON RA. LS DIM IN BASES. PT CALLS APPROPRIATELY. WILL REPORT TO SERENE TOMLINSON.
--- NOTE | 2019-09-05 19:39 | NUR ---
transfer report with hand off form & bedside report to Oleg who is assuming care from me. PT alert oriented calls appropriately. Up with stand by assist to bathroom, room air denies acute distress. Discussed plan of care OBS status, NKDA, Full code.
[2019-09-05 21:53] LABS: U Amphetamine Screen Not Detected; U Barbituate Screen Not Detected; U Benzodiazapine Screen Not Detected; U Buprenorphine Screen Not Detected; U Cannabinoids Screen Not Detected; U Cocaine Screen Not Detected; U Methadone Screen Not Detected; U Methamphetamine Screen Not Detected; U Opiates Screen Not Detected; U Oxycodone Screen Not Detected; U Phencyclidine Screen Not Detected; U Propoxyphene Screen Not Detected
[2019-09-06 05:08] LABS: Bun/Creatinine Ratio 13.1 (12.0-20.0); Calcium, Blood 8.2 mg/dL (8.5-10.1); Creatinine, Blood 2.59 mg/dL (0.40-1.00); Potassium, Blood 3.5 mmol/L (3.5-5.5)
--- NOTE | 2019-09-06 05:35 | NUR ---
SUMMARY PT HAD SOME NECK DISCOMFORT IN THE NIGHT AND TX W/ TYLENOL. PT HAS BEEN SLEEPING WELL. PT CURRENTLY SLEEPING IN NO DISTRESS. WCTM. CALL LIGHT IN REACH.
[2019-09-06] MEDS ORDERED: LEVFLO500 PO (10:57)
[2019-09-06] MEDS ORDERED: PROBIOTIC250 MG PO (10:57)
--- NOTE | 2019-09-06 13:55 | NUR ---
PT DISCHARGED THE PT VERBALIZED UNDERSTANDING OF THE DC INSTRUCTIONS, PT WAS REMINDED TO CALL HER PCP'S FOR FOLLOW UP APPOINTS ON SUNDAY, PTS PRESCRIPTIONS WERE FAXED TO [facility], THE PT WAS TRANSFRED TO THE FRONT VIA WHEECHAIR TO MEET HER DAUGHTER, THE PT APPEARED TO BE BREATHING EASILY ON RA AT THE TIME OF DC
== END 2019-09-06 12:56 | disposition home or self-care (01) ==
LOC: ER 13:20 → MEDS 13:21 → ENPENDDIS 09-06 12:32 → MEDS 09-06 12:56
PROVIDERS: Emergency Medicine; ADMIT Internal Medicine
DX: J18.9 Pneumonia, unspecified organism (principal); G93.40 Encephalopathy, unspecified; E11.65 Type 2 diabetes mellitus with hyperglycemia; I65.23 Occlusion and stenosis of bilateral carotid arteries; I13.0 Hypertensive heart and chronic kidney disease with heart failure and stage 1 through stage 4 chronic kidney disease, or unspecified chronic kidney disease; I50.22 Chronic systolic (congestive) heart failure; N18.3 Chronic kidney disease, stage 3 (moderate); E11.22 Type 2 diabetes mellitus with diabetic chronic kidney disease; E78.5 Hyperlipidemia, unspecified; Z79.82 Long term (current) use of aspirin; Z79.899 Other long term (current) drug therapy; Z79.4 Long term (current) use of insulin
CPT/HCPCS: 36415; 71045; 80048; 80053; 81001; 82010; 82947; 83605; 85025; 93005; 93010; 96361; 96365; 96372; 96375; 99285-25; A9270; A9270-GY; G0378; J0456; J0696; J1650; J1815; J7030; J7050

== ENCOUNTER 2020-06-16 05:07 | Inpatient (IN) | payer OTHER ==
[~2020-06-16] VITALS: Ht 154.9 cm; Wt 45.1 kg
[~2020-06-16 05:07] MED LIST changes: +BUME2 PO; +CARVEDILOL12.5 MG PO; +LEVFLO500 PO; +METFORMIN HCL1000 MG PO; +PROBIOTIC250 MG PO
[2020-06-16 06:02] LABS: BASOPHILS ABSOLUTE AUTO 0.04 K/mm3 (0.00-0.23); BASOPHILS PERCENT AUTO 0 % (0-2); EOSINOPHILS PERCENT AUTO 0 % (0-6); Hematocrit 44.1 % (33.0-51.0); Hemoglobin 13.6 g/dL (11.5-16.0); IMMATURE GRAN ABSOLUTE AUTO 0.07 K/mm3 (0.00-0.10); IMMATURE GRAN PERCENT AUTO 1 % (0-1); LYMPHOCYTES ABSOLUTE AUTO 0.02 K/mm3 (0.84-5.20); LYMPHOCYTES PERCENT AUTO 0 % (21-46); MONOCYTES ABSOLUTE AUTO 0.41 K/mm3 (0.16-1.47); MONOCYTES PERCENT AUTO 3 % (4-13); Mean Corpuscular HGB Conc 30.8 g/dL (31.5-36.5); Mean Corpuscular Volume 81 fL (80-100); NEUTROPHILS ABSOLUTE AUTO 13.66 K/mm3 (1.96-9.15); NEUTROPHILS PERCENT AUTO 96 % (41-73); NRBC ABSOLUTE 0.63 K/mm3 (0.00-0.02); NRBC Auto 4.4 /100 WBC (0.0-0.2); Platelet Count 127 K/mm3 (150-400); RDW Standard Deviation 75.6 fL (35.1-46.3); Red Blood Cell Count 5.45 M/mm3 (3.80-5.20)
[2020-06-16 06:41] LABS: Source, Urine Clean Catch
[2020-06-16 06:47] LABS: Appearance, Urine Hazy (Clear); Bilirubin, Urine Neg (Neg); Blood, Urine 2+ (Neg); Color, Urine Yellow (P-Yellow); Glucose Qualitative, Urine 1+ (Neg); Ketones, Urine 1+ (Neg); Leukocyte Esterase, Urine 1+ (Neg); Nitrite, Urine Pos (Neg); Protein, Urine 4+ (Neg); Specific Gravity, Urine 1.025 (1.003-1.022); Urobilinogen, Urine NORM (Normal)
[2020-06-16 06:54] LABS: Amorphous Mod (0-Heavy); Bacteria Many /hpf; Squamous Epithelial Cells Rare /hpf (Few)
[2020-06-16 07:36] LABS: Alanine Aminotransfer (ALT/SGP 47 U/L (12-78); Albumin, Blood 2.4 g/dL (3.4-5.0); Albumin/Globulin Ratio 0.4 (0.8-1.8); Alk Phos 213 U/L (50-136); Anion Gap 9 mmol/L (6-16); Aspartate Aminotrans (AST/SGOT 54 U/L (12-37); Bilirubin, Total 1.2 mg/dL (0.1-1.0); Blood Urea Nitrogen 60 mg/dL (8-24); Bun/Creatinine Ratio 21.4 (12.0-20.0); CO2, Blood 23 mmol/L (21-32); CPK Creatine Kinase 85 U/L (26-193); Calcium, Blood 9.5 mg/dL (8.5-10.1); Chloride, Blood 117 mmol/L (98-108); Creatinine, Blood 2.81 mg/dL (0.40-1.00); Globulin, Blood 5.5 g/dL (2.2-4.0); Glomerular Filtration Rate 18 (60-); Glucose, Blood 65 mg/dL (70-99); Potassium, Blood 5.2 mmol/L (3.5-5.5); Sodium, Blood 149 mmol/L (136-145); Total Protein, Blood 7.9 g/dL (6.4-8.2); Troponin I <0.015 ng/mL (0.000-0.040)
--- NOTE | 2020-06-16 15:06 | NUR ---
CALLED THE DAUGHTER CALLED THE DTR AND DISCUSSED ABOUT THE BASELINE OF THIS PT. PER DAUGHTER, THE PT DOES NOT GET UP AT HOME, NOT ABLE TO BATHE HERSELF, NOT ABLE TO CARE FOR HERSELF AT ALL. DTR STATED THAT THE PT ALSO VERY HARD TO COMMUNICATE. PT DTR STATED THAT THE PT GOT WORSE FROM DIFFICULTY COMMUNICATING, THEREFORE SHE TOOK HER TO THE ED. PT ALSO DOES NOT EAT VERY MUCH AND MALNOURISHED. DTR WOULD LIKE THE PT TO BE IN A LONG-TERM. DTR WANTED TO TALK TO DOCTOR TOMORROW.
--- NOTE | 2020-06-16 15:27 | NUR ---
PT IS A NEW ED ADMIT, WHO WAS ADMITTED FOR ACUTE METABOLIC ENCEPH. PT IS A 70/F, NONVERBAL, BUT MOANS AND AROUSABLE. PT HAS SWOLLEN L EYE DUE TO FALL AT HOME. PT HAS PMH OF BILAT CATARACTS, CHF, CKD STAGE 3. APPARENTLY WHEN THE PT FELL AT HOME, SHE WAS ON BLOOD THINNERS. PT HAS NO CURRENT POLST PER NOTE, AND CHANGED THE STATUS TO DNR. DOCTOR TALKED TO DTR AND THIS NURSE CALLED THE DTR FOR AN UPDATE. PT CAME IN WITH A LOW TEMPERATURE, NOW BACK TO WNL. RE-WARMER AVAILABLE AT BEDSIDE IF NEEDED. PT DOES NOT EAT WELL PER DTR,THEREFORE DIATECIAN CONSULT IN FOR PERIPHERAL SUPPLEMENTS. UNABLE TO GATHER FULL INFORMATION BECAUSE OF THE PT MENTAL STATUS; CALLED THE DTR AND STATED THAT THE PT USUALLY RECEIVES INSULIN AT HOME, CALLED THE DR AND DR WAS WORRIED MORE ABOUT HYPOGLYCEMIA, DC'D THE BLOOD SUGAR CHECK. PALLIATIVE CARE CONSULT IN FOR FURTHER PLANNING. PT HAS GENERAL WEAKNESS, AND BEDREST AT THIS TIME, WHICH IS HER BASELINE. BED IS IN THE LOWEST POSITION AND CALL LIGHT WITHIN REACH
--- NOTE | 2020-06-16 16:16 | NUR ---
Made a visit to pt this afternoon; she appears to be resting comfortably at this time. Placed a call to pt's daughter Lucia who is primary caregiver. She states she believes her mom is ready for comfort care, as she has been declining for several weeks, including decreasing appetite, weight loss, and increased sleep. Lucia states, "It's in God's hands now", and is planning to visit today to sign POLST as DNR, with comfort measures. Plan to meet Lucia at pt's room when se arrives.
[2020-06-16 18:39] LABS: International Normalized Ratio 1.29; Prothrombin Time Results 13.6 Sec (9.7-11.5)
--- NOTE | 2020-06-16 18:47 | NUR ---
SHIFT SUMMARY PT NONVERBAL, BUT MOANS AND GROANS. MEDICATED PER EMARX1. PT ON 1L OF , SATS LOW 90'S THIS AFTERNOON. PT DTR WOULD LIKE AN UPDATE. PT IS ON NORMAL SALINE @75ML/HR. PT WILL HAVE THORACENTESIS TOMORROW. COVID TEST DONE. BED IS IN THE LOWEST POSITION AND CALL LIGHT WITHIN REACH
[2020-06-16 19:25] LABS: Influenza A, PCR NEGATIVE (NEGATIVE); Influenza B, PCR NEGATIVE (NEGATIVE); Resp Syncytial Virus, PCR NEGATIVE (NEGATIVE); SARS-Cov-2 (COVID-19) PCR, MMC NEGATIVE (NEGATIVE)
--- NOTE | 2020-06-16 21:15 | NUR ---
BLOOD GLUCOSE: PATIENT IS NOT EATING AND IS DIABETIC. DR CABRERA IS CALLED FOR BLOOD GLUCOSE ORDERS. BLOOD GLUCOSE WAS 65. DR GRIFFITH IS NOTIFIED AND ORDER TO START HYPOGLYCEMIC PROTOCOL AND GIVE AN AMP OF DEXTROSE 50% NOW.
--- NOTE | 2020-06-16 21:44 | NUR ---
BLOOD GLUCOSE: BLOOD GLUCOSE RECHECK IS 165. PATIENT CONTINUES TO ONLY MOAN WITH T&P AND SQUEEZES WRITERS HANDS, WEAKLY ON COMMAND.
--- NOTE | 2020-06-17 02:16 | NUR ---
: NO SPONTANIOUS VOID SINCE ADMIT. BLADDER SCAN SHOWED 297ML S/P LASIX. DR STARK IS NOTIFIED AND REQUEST FOR PLACEMENT OF DAI CATH FOR RETENTION AND ACCURATE I&O. ORDERED OBTAINED IS CONTINUE TO BLADDER SCAN Q6H AND STRAIGHT CATH FOR OVER 450ML.
[2020-06-17 05:24] LABS: Hematocrit 37.4 % (33.0-51.0); Hemoglobin 11.6 g/dL (11.5-16.0); Mean Corpuscular HGB 25.6 pg (26.0-34.0); Mean Corpuscular Volume 83 fL (80-100); NRBC ABSOLUTE 0.61 K/mm3 (0.00-0.02); NRBC Auto 4.3 /100 WBC (0.0-0.2); Platelet Count 104 K/mm3 (150-400); RDW Coefficient Variation 28.3 % (11.7-14.2); RDW Standard Deviation 68.6 fL (35.1-46.3); Red Blood Cell Count 4.53 M/mm3 (3.80-5.20); White Blood Cell Count 14.29 K/mm3 (4.00-11.30)
[2020-06-17 05:48] LABS: Albumin, Blood 1.9 g/dL (3.4-5.0); Albumin/Globulin Ratio 0.4 (0.8-1.8); Bilirubin, Total 0.7 mg/dL (0.1-1.0); Bun/Creatinine Ratio 20.7 (12.0-20.0); Calcium, Blood 8.4 mg/dL (8.5-10.1); Globulin, Blood 4.9 g/dL (2.2-4.0); Phosphorus, Blood 4.9 mg/dL (2.5-4.9); Potassium, Blood 3.7 mmol/L (3.5-5.5); Total Protein, Blood 6.8 g/dL (6.4-8.2)
[2020-06-17 06:21] LABS: BAND PERCENT MAN 8 % (0-8); BASOPHILS PERCENT MAN 0 % (0-2); EOSINOPHILS PERCENT MAN 0 % (0-6); LYMPHOCYTES PERCENT MAN 3 % (21-46); MONOCYTES PERCENT MAN 1 % (4-13); SEG NEUTROPHILS PERCENT MAN 88 % (41-73); TOTAL CELLS COUNTED 100
[2020-06-17 06:24] LABS: EOSINOPHILS ABSOLUTE AUTO 0.02 K/mm3 (0.00-0.68); EOSINOPHILS PERCENT AUTO 0 % (0-6); IMMATURE GRAN ABSOLUTE AUTO 0.08 K/mm3 (0.00-0.10); IMMATURE GRAN PERCENT AUTO 1 % (0-1); NEUTROPHILS ABSOLUTE AUTO 13.25 K/mm3 (1.96-9.15); NEUTROPHILS PERCENT AUTO 93 % (41-73)
--- NOTE | 2020-06-17 06:32 | NUR ---
SHIFT SUMMARY: PATIENT REMAINS RESPONSIVE TO VOICE, DOES NOT OPEN EYE'S OR SPEAK, OCCASSIONAL MOANING WITH REPOSITIONING. DR DE LA ROSA DC'D IVF AND ORDERED IV LASIX TO BE GIVEN. NO SPONTANIOUS VOIDS, ONLY 425ML OUT VIA STRAIGHT CATH AFTER LASIX. NOTHING IN BY MOUTH THIS SHIFT. BOOD GLUCOSE THIS AM IS 84. BILAT EYE'S ARE SWOLLEN, REDDENED WITH DRAINAGE NOTED ON LEFT. WARM COMPRESS APPLIED. PATIENT RESISTANT TO MOUTH CARE.
[2020-06-17 10:40] LABS: Automated BF WBC Count 0.071 K/mm3 (0-999); Body Fluid WBC Count 71 /mm3 (0-999)
[2020-06-17 10:43] LABS: Glucose, Body Fluid 96 mg/dL; Lactate Dehydrogenase, Body Fl 148 U/L; Protein, Body Fluid 2.5 g/dL
[2020-06-17 11:17] LABS: RBC Count, Body Fluid 96 /mm3 (0-0)
[2020-06-17 11:32] LABS: Source, Urine Catheter
[2020-06-17 11:38] LABS: Color, Body Fluid Yellow (None-Yellow); Total Cell Count, Body Fluid 100
[2020-06-17 11:39] LABS: Appearance, Body Fluid Clear (Clear)
[2020-06-17 12:04] LABS: Appearance, Urine Hazy (Clear); Bilirubin, Urine Neg (Neg); Blood, Urine 3+ (Neg); Color, Urine Yellow (P-Yellow); Glucose Qualitative, Urine Neg (Neg); Ketones, Urine Neg (Neg); Leukocyte Esterase, Urine Neg (Neg); Nitrite, Urine Neg (Neg); Protein, Urine 3+ (Neg); Specific Gravity, Urine 1.015 (1.003-1.022); Urobilinogen, Urine NORM (Normal)
[2020-06-17 12:21] LABS: Red Blood Cells, Urine 0-2 /hpf (0-2); White Blood Cells, Urine 0-2 /hpf (0-5)
[2020-06-17 12:22] LABS: Amorphous Mod (0-Heavy); Bacteria Few /hpf; Hyaline Casts Rare /lpf (0-2); Squamous Epithelial Cells Few /hpf (Few)
[2020-06-17 12:23] LABS: Renal Epithelial Rare /hpf (0-Rare); Transitional Epithelial Cells Rare /hpf (0-Rare)
--- NOTE | 2020-06-17 16:26 | NUR ---
SHIFT SUMMARY PT RESPONDS TO VERBAL STIMULI AT TIMES. PLACED A DAI THIS AM, DUE TO RETENTION. PT ALSO HAD THORACENTESIS TODAY. PT IS NOW RECEIVING PERIPHERAL NUTRITION. PT IS ON 1L OF O2 PRN, WHEN HER SATS ARE ON LOW 90S. BROTHER CAME IN AND VISITED THE PT. THIS RN ALSO UPDATED THE DTR VIA PHONE. PT DTR WILL BE IN FOR TOMORROW AND WOULD LIKE TO TALK TO THE DOCTOR. Q2 TURN AND ORAL CARE PRN. BED IS IN THE LOWEST POSITION AND CALL LIGHT WITHIN REACH
--- NOTE | 2020-06-17 17:39 | NUR ---
ADMIT: 06/16/20 DISCHARGE: DX: Acute Metabolic encephalopathy CC: kwilcox DARI CALL: RESIDENCE: Home CAREGIVER: Lucia Zapata, Child, DX: Acute hypoxemic resp. failure, CKD-stage 3, CHF, DM, see list DME: DM supplies, wheelchair CCM: Referral- 2019 HOME HEALTH: [facility]- 2019; [facility]- 2019 SUMMARY: Admit: 06/16/20 06/17/20 stopped by patient room, sleeping, updated white board. Per Dr Madden, patient's daughter would be arriving today. wanted to have a meeting today to decide on comfort care. Patient is being seen by Dr Lees. Note from Brittny in palliative, daughter is unable to take her home, may need placement or pass here in the hospital. cp 1: Acute metabolic encephalopathy
[2020-06-18 05:20] LABS: Hematocrit 39.9 % (33.0-51.0); Hemoglobin 12.4 g/dL (11.5-16.0)
[2020-06-18 05:34] LABS: Albumin, Blood 1.8 g/dL (3.4-5.0); Anion Gap 7 mmol/L (6-16); Blood Urea Nitrogen 74 mg/dL (8-24); Bun/Creatinine Ratio 24.3 (12.0-20.0); CO2, Blood 23 mmol/L (21-32); Calcium, Blood 8.4 mg/dL (8.5-10.1); Chloride, Blood 118 mmol/L (98-108); Creatinine, Blood 3.05 mg/dL (0.40-1.00); Glomerular Filtration Rate 16 (60-); Glucose, Blood 161 mg/dL (70-99); Lactate Dehydrogenase (Ld),Bld 445 U/L (100-240); Magnesium, Blood 2.2 mg/dL (1.6-2.4); Phosphorus, Blood 5.7 mg/dL (2.5-4.9); Potassium, Blood 4.2 mmol/L (3.5-5.5); Sodium, Blood 148 mmol/L (136-145); Triglycerides 171 mg/dL (30-160)
--- NOTE | 2020-06-18 06:52 | NUR ---
SHIFT SUMMARY PT IS A 70 Y/O FEMALE, ADMITTED FOR ACUTE METABOLIC ENCEPHALOPATHY AND FAILURE TO THRIVE. SHE IS A&O X 0, RESPONDS TO VOICE BUT DOES NOT FOLLOW COMMANDS. BEDREST, TURN Q2H. VITAL SIGNS STABLE. NO S/S OF PAIN, NAUSEA OR SOB. PT RECEIVING CLINIMIX @ 50 ML/HR. NO ACUTE CHANGES IN PT CONDITION NOTED DURING THE NIGHT. REPORT GIVEN TO ONCOMING RN.
--- NOTE | 2020-06-18 18:31 | NUR ---
PT HAS BEEN RESTING IN BED THIS SHIFT WITH Q2 TURNS AND ORAL CARE COMPLETED. PT IS ABLE TO STATE NEEDS FOR PAIN MANAGEMENT AND THURST/HUNGER. PT REQUESTED COFFEE WITH DINNER AND WAS ABLE TO CONSUME 10%. PUREED DIET ORDERED. BED IN LOW POSITION AND CALL LIGHT WITHIN REACH. 1L O2 PRN IN USE. 3ML SYRINGE BEING USED FOR FLUID ADMIN. STAFF WILL CONT. TO MONITOR FOR CHANGES.
--- NOTE | 2020-06-18 19:06 | NUR ---
ASSUMED CARE RECEIVED REPORT FROM DAVI BARBA. PT ASLEEP, RESPS E/U. NO ACUTE SIGNS OF DISTRESS NOTED. CALL LIGHT, POSSESSIONS IN REACH, BED IN LOW POSITION.
--- NOTE | 2020-06-19 03:54 | NUR ---
FRUIT THINNER SUMMARY PT SITTING UP IN BED, IN NO ACUTE DISTRESS. NO ACUTE CHANGES IN CONDITION NOTED OVERNIGHT. SLEEPS MOST OF THE TIME, AROUSES TO VERBAL/TACTILE STIMULI, ABLE TO ANSWER SIMPLE YES/NO QUESTIONS. HAS PERIODS OF INCREASED ALERTNESS. WAS ABLE TO DRINK A SMALL AMOUNT OF MILK WITH FEEDING ASSISTANCE AND CUEING. CBGS CONTINUE Q6H WITH INSULIN COVERAGE PER ORDERS. VS REVIEWED,WNL. O2 SATS STABLE ON 1L/NC, RESPS E/U, NO S/S RESPIRATORY DISTRESS. NO S/S PAIN OR DISCOMFORT NOTED. NO ACUTE NEEDS ASSESSED AT THIS TIME. REPOSITIONED Q2H, ELBOW AND HEEL PROTECTORS IN PLACE. CALL LIGHT, POSSESSIONS IN REACH, BED IN LOW POSITION WITH ALARMS ON. WILL CONTINUE TO PROVIDE CARE AND REPORT OFF TO ONCOMING RN.
[2020-06-19 04:54] LABS: BASOPHILS ABSOLUTE AUTO 0.04 K/mm3 (0.00-0.23); BASOPHILS PERCENT AUTO 1 % (0-2); EOSINOPHILS ABSOLUTE AUTO 0.08 K/mm3 (0.00-0.68); EOSINOPHILS PERCENT AUTO 1 % (0-6); Hematocrit 41.5 % (33.0-51.0); Hemoglobin 12.8 g/dL (11.5-16.0); IMMATURE GRAN ABSOLUTE AUTO 0.06 K/mm3 (0.00-0.10); IMMATURE GRAN PERCENT AUTO 1 % (0-1); LYMPHOCYTES ABSOLUTE AUTO 1.07 K/mm3 (0.84-5.20); LYMPHOCYTES PERCENT AUTO 13 % (21-46); MONOCYTES PERCENT AUTO 5 % (4-13); Mean Corpuscular HGB 25.8 pg (26.0-34.0); Mean Corpuscular HGB Conc 30.8 g/dL (31.5-36.5); Mean Corpuscular Volume 84 fL (80-100); NEUTROPHILS ABSOLUTE AUTO 6.69 K/mm3 (1.96-9.15); NEUTROPHILS PERCENT AUTO 80 % (41-73); Platelet Count 91 K/mm3 (150-400); RDW Coefficient Variation 29.7 % (11.7-14.2); RDW Standard Deviation 84.6 fL (35.1-46.3); Red Blood Cell Count 4.97 M/mm3 (3.80-5.20); White Blood Cell Count 8.34 K/mm3 (4.00-11.30)
[2020-06-19 05:20] LABS: Albumin, Blood 1.7 g/dL (3.4-5.0); Albumin/Globulin Ratio 0.3 (0.8-1.8); Bilirubin, Total 0.6 mg/dL (0.1-1.0); Bun/Creatinine Ratio 30.1 (12.0-20.0); Calcium, Blood 8.3 mg/dL (8.5-10.1); Creatinine, Blood 2.99 mg/dL (0.40-1.00); Globulin, Blood 5.2 g/dL (2.2-4.0); Magnesium, Blood 2.2 mg/dL (1.6-2.4); Phosphorus, Blood 6.3 mg/dL (2.5-4.9); Potassium, Blood 4.8 mmol/L (3.5-5.5); Total Protein, Blood 6.9 g/dL (6.4-8.2)
--- NOTE | 2020-06-19 05:53 | NUR ---
DR. CABRERA NOTIFIED OF PT'S LACTIC ACID OF 2.1 AND BNP OF >5000. NO NEW ORDERS RECEIVED AT THIS TIME.
--- NOTE | 2020-06-19 16:04 | NUR ---
ECHOCARDIOGRAM COMPLETED
--- NOTE | 2020-06-19 18:21 | NUR ---
PT RESTING IN BED AFTER DINNER AND PM MEDICATION ADMIN. PT MADE NO COMPLAINTS OF PAIN DURRING SHIFT AND IS MORE ALERT. PT WAS ABLE TO VERBALIZE HER NEEDS, HOWEVER, SHE WAS NOT ABLE TO USE CALL LIGHT. IV LINE RUNNING AND WITHIN NORMAL LIMITS. BED IN LOW POSTITION. STAFF WILL CONT. TO MONITOR FOR NEEDS AND CHANGES.
--- NOTE | 2020-06-19 19:05 | NUR ---
ASSUMED CARE RECEIVED REPORT FROM DAVI BARBA. PT RESTING, IN NO ACUTE DISTRESS, DENIES PAIN. NO ACUTE NEEDS ASSESSED AT THIS TIME. TPN INFUSING ORDERED. CALL LIGHT, POSSESSIONS IN REACH, BED IN LOW POSITION WITH ALARMS ON.
--- NOTE | 2020-06-19 19:35 | NUR ---
FOR DR. HYDE... PT DAUGHTER NERI CALLED AND STATED SHE WOULD BE HERE TO SEE EFM MD DR HYDE AT 0950 06/20/2020. THIS RN WILL INFORM MD IN THE MORNING.
--- NOTE | 2020-06-20 04:11 | NUR ---
PARACHUTE CROWN SEWER SUMMARY PT RESTING IN BED, IN NO ACUTE DISTRESS. VS REVIEWED,WNL. PT HAS BEEN SLEEPING ON AND OFF THROUGHOUT THE NIGHT. INCREASINGLY ALERT, CALLS OUT FOR FAMILY MEMBERS, ABLE TO VERBALIZE NEEDS; REQUESTED A "BACK SCRATCH." PT GIVEN A BACKRUB AND LOTION APPLIED TO SKIN. PT REPOSITIONED, HEEL AND ELBOW PADS IN PLACE. PT DAUGHTER, NERI, TO COME IN THIS AM TO MEET C DR. HYDE. PROVIDED REASSURANCE TO PT OF DAUGHTER'S UPCOMING VISIT. TPN ONGOING, CBGS CONTINUE Q6H WITH INSULIN COVERAGE ORDERED. ENCOURAGED ORAL INTAKE VIA SYRINGE, TOLERATED WELL. NO OTHER ACUTE NEEDS ASSESSED AT THIS TIME. CALL LIGHT, POSSESSIONS IN REACH, BED IN LOW POSITION WITH ALARMS ON. WILL CONTINUE TO PROVIDE CARE UNTIL REPORT GIVEN TO ONCOMING RN.
[2020-06-20 04:55] LABS: BASOPHILS ABSOLUTE AUTO 0.03 K/mm3 (0.00-0.23); BASOPHILS PERCENT AUTO 1 % (0-2); EOSINOPHILS ABSOLUTE AUTO 0.15 K/mm3 (0.00-0.68); EOSINOPHILS PERCENT AUTO 3 % (0-6); Hemoglobin 14.1 g/dL (11.5-16.0); Mean Corpuscular HGB 27.2 pg (26.0-34.0); Mean Corpuscular HGB Conc 32.8 g/dL (31.5-36.5); Mean Corpuscular Volume 83 fL (80-100); NRBC ABSOLUTE 0.75 K/mm3 (0.00-0.02); NRBC Auto 12.9 /100 WBC (0.0-0.2); Platelet Count 89 K/mm3 (150-400); RDW Coefficient Variation 29.3 % (11.7-14.2); Red Blood Cell Count 5.19 M/mm3 (3.80-5.20); White Blood Cell Count 5.81 K/mm3 (4.00-11.30)
[2020-06-20 04:58] LABS: IMMATURE GRAN ABSOLUTE AUTO 0.03 K/mm3 (0.00-0.10); IMMATURE GRAN PERCENT AUTO 1 % (0-1); LYMPHOCYTES ABSOLUTE AUTO 0.79 K/mm3 (0.84-5.20); LYMPHOCYTES PERCENT AUTO 14 % (21-46); MONOCYTES PERCENT AUTO 5 % (4-13); NEUTROPHILS ABSOLUTE AUTO 4.51 K/mm3 (1.96-9.15); NEUTROPHILS PERCENT AUTO 78 % (41-73)
[2020-06-20 05:18] LABS: Magnesium, Blood 2.4 mg/dL (1.6-2.4)
[2020-06-20 05:22] LABS: Albumin, Blood 1.8 g/dL (3.4-5.0); Anion Gap 9 mmol/L (6-16); Blood Urea Nitrogen 103 mg/dL (8-24); Bun/Creatinine Ratio 36.3 (12.0-20.0); CO2, Blood 21 mmol/L (21-32); Calcium, Blood 8.3 mg/dL (8.5-10.1); Chloride, Blood 108 mmol/L (98-108); Creatinine, Blood 2.84 mg/dL (0.40-1.00); Glomerular Filtration Rate 18 (60-); Glucose, Blood 251 mg/dL (70-99); Phosphorus, Blood 5.1 mg/dL (2.5-4.9); Potassium, Blood 4.8 mmol/L (3.5-5.5); Sodium, Blood 138 mmol/L (136-145)
--- NOTE | 2020-06-20 13:06 | NUR ---
Reviewed chart and discussed case with Bedside RN Chelsea. Dr Mcarthur and daughter had discussion regarding goals of care. Comfort Care elected. Pt resting in bed upon arrival. Pt appears comfortable with no S/S of distress at this time. Pt reports no concerns at this time. Called and spoke with Pt's sarah Myers. Offered therapeutic listening and answered questions. Lucia expresses appreciation of call and report no other concerns at this time. Palliative Care will remain available.
--- NOTE | 2020-06-20 18:26 | NUR ---
PT RESTING IN BED, IS NOW ON COMFORT CARE AND MAKES NO COMPLAINTS AT THIS TIME. FAMILY HAS BEEN AT BEDSIDE THIS SHIFT. PT IS ABLE TO STATE HER NEEDS. IV LINE IS SL AND WNL. BED IN LOW POSITION AND CALL LIGHT WITHI REACH. STAFF WILL CONT. TO MONITOR.
--- NOTE | 2020-06-20 19:10 | NUR ---
ASSUMED CARE RECEIVED REPORT FROM DAVI BARBA, AT THE BEDSIDE MEDICATING PT WITH PRN ATIVAN FOR ANXIETY. PT IN NO ACUTE DISTRESS, TALKATIVE TOWARDS STAFF. NO S/S PAIN NOTED. DENIES NEEDS. CALL LIGHT, POSSESSIONS IN REACH, BED IN LOW POSITION WITH ALARMS ON.
--- NOTE | 2020-06-21 07:20 | NUR ---
RANGE EXAMINER SUMMARY PT RESTING, IN NO ACUTE DISTRESS. APPEARED COMFORTABLE T/O NIGHT. NO ACUTE NEEDS ASSESSED AT THIS TIME. REPORT GIVEN TO DAVI WEST.
--- NOTE | 2020-06-21 10:00 | NUR ---
PT AWAKE, QUIET. DENIES PAIN. ALERT TO FAMILY SELF. NOT TALKATIVE. RESP EASY UNLABORED. ON R.A. RESP APPROX. 20 / MIN. NO TELE, PT CDI AT THIS TIME. DAI CATH DRAINING CLEAR YELLOW FLUID. BED IN LOW POSITION, CALL LITE IN REACH, BED ALARM ON FOR SAFETY
--- NOTE | 2020-06-21 14:53 | NUR ---
Met with pt's nurse today after looking in on pt, who appears to be sleeping, respirations are even and unlabored. He states she has been waking intermittently, and denies pain or SOB when she is awake. Family has been visiting according to DAVI Zaragoza. New pictures of her family, along with sorenson have been placed in the room. The right eye swelling is resolving, but still slightly dicolored. Plan to call pt's daughter this afternoon to see how family is holding up at this point, as pt has recently been placed on comfort care, and decline likely to accelerate.
--- NOTE | 2020-06-21 15:52 | NUR ---
Spiritual care note: Ms. Zapata was minimally responsive and denied pain. No family present at time of visit, but photos and sorenson present. She is clearly well-loved. She is non-jew and declined prayer. I will remain available to pt and family.
--- NOTE | 2020-06-21 17:49 | NUR ---
PT PLEASANT TODAY. BARELY ANY WORDS. NO C/O PAIN. TURNED REGULARLY. PRESENTLY CDI ATTENDS. [facility] STATES MAY D/C TOMORROW AT 1030. NO NEW CONCERNS NOTED TODAY. BED IN LOW POSITION, CALL LITE IN REACH, BED ALARM ON FOR SAFETY.
--- NOTE | 2020-06-21 17:52 | NUR ---
PT RESP MAINTAINING 16-18 / MIN. PT SLEEPING MOST OF DAY. EYES CLOSED. DOES AWAKEN TO VERBAL DISCUSSION AND ANSWERS MIMIMALLY.
--- NOTE | 2020-06-21 18:30 | NUR ---
ADMIT: 06/16/20 DISCHARGE: DX: Acute Metabolic encephalopathy CC: cpeabody DARI CALL: Discharge home with daughter, Lucia Sunday, Start [facility] hospice on Sunday. RESIDENCE: Home with daughter CAREGIVER: Lucia Zapata, Child, DX: Acute hypoxemic resp. failure, CKD-stage 3, CHF, DM, see list DME: DM supplies, wheelchair CCM: Referral- 2019 HOME HEALTH: [facility] to start services 06/21/20 SUMMARY: Admit: 06/16/20 06/21/20 s/w Daughter Lucia by Telephone. Kelsey placed on comfort care Sunday. Discussed hospice at home, Lucia would like her to be home and after we discussed services she agreed they could care for her at home. s/w Sharlene at [facility]. Transport home is planned for 10:30 am Sunday. cp
--- NOTE | 2020-06-21 19:22 | NUR ---
ASSUMPTION OF CARE. LIBAN IS AWAKE, TALKING SOME. DENIES PAIN. REPOSITIONED UP IN BED, TV ON. CURRENTLY DENIES ANY NEEDS. CALL LIGHT IS IN REACH. BED ALARM IS ON.
--- NOTE | 2020-06-21 22:20 | NUR ---
ALERT WATCHING TV, CALLS OUT FOR HER MOTHER AT TIMES. DID GET LEGS OVER SIDE OF BED A FEW TIMES SETTING OFF THE ALARM. CATHETER IS STILL PATENT AND DRAINING. REPOSITIONED IN BED. CALL LIGHT IS IN REACH.
--- NOTE | 2020-06-22 00:58 | NUR ---
REPOSITIONED IN BED, PUT UP SIDE RAIL ON THE BOTTOM OF BED DUE TO PATIENT TRYING TO WIGGLE SELF OUT OF BED. CONTINUES TO CALL OUT FOR HER MOTHER. WHEN ASKED IF SHE IS IN PAIN SHE SAYS NO. ASKING FOR HER DINNER, INFORMED HER SHE HAS ALREADY HAD IT, OFFERED APPLESAUCE, PUDDING OTHER SNACKS IT WAS DENIED. CALL LIGHT IS IN REACH, BED ALARM IS ON.
--- NOTE | 2020-06-22 05:33 | NUR ---
SHIFT SUMMARY: COMFORT CARE. ALERT AT TIMES, TALKS A LITTLE ONCE IN A WHILE. AT TIMES SHE HAS YELLED OUT FOR HER MOTHER OR TRIED TO GET OUT OF BED FORGETTING WHERE SHE IS AT. SHE GOT VERY ANXIOUS ASKING TO EAT BUT WHEN WE OFFERED HER THINGS SHE WOULD REFUSE. ORAL CARE PROVIDED. REPOSITIONING DOWN. CATHETER PATENT AND DRAINING. DID GIVE ATIVAN ORAL CRUSHED IN APPLESAUCE TO HELP CALM HER TO SHE COULD SLEEP. RESTING WELL. DENIED PAIN WHEN EVER ASKED. NO FURTHER CHANGES TO REPORT. CALL LIGHT WITH IN REACH, BED ALARM ON.
--- NOTE | 2020-06-22 09:36 | NUR ---
REPORT RECIEVED FROM CARMEN. PT RESTING IN BED. NO ACUTE DISTRESS NOTED AT THIS TIME.
[2020-06-22] MEDS ORDERED: LORA1 PO (09:59)
[2020-06-22] MEDS ORDERED: MORP20L SL (10:04)
[2020-06-22] MEDS ORDERED: ONDA4ODT PO (10:04)
[2020-06-22] MEDS ORDERED: PROM25 PO (10:05)
[2020-06-22] MEDS ORDERED: TRANSDERM-SCOP1 EAC4 TD (10:05)
[2020-06-22] MEDS ORDERED: PROM12.5S PR (10:05)
--- NOTE | 2020-06-22 12:14 | NUR ---
[facility] HERE TO PICK PT UP. TO [facility] VIA GURNEY WITH DESTINATION TO HOME ON HOSPICE.
[2020-06-22 15:11] LABS: A/G RATIO 0.5 (0.7-1.7); ALBUMIN 2.3 g/dL (2.9-4.4); ALPHA-1-GLOBULIN 0.3 g/dL (0.0-0.4); ALPHA-2-GLOBULIN 0.5 g/dL (0.4-1.0); BETA GLOBULIN 1.3 g/dL (0.7-1.3); GAMMA GLOBULIN 2.1 g/dL (0.4-1.8); GLOBULIN, TOTAL 4.3 g/dL (2.2-3.9); M-SPIKE Not Observed g/dL (Not Observed); PROTEIN, TOTAL, SERUM 6.6 g/dL (6.0-8.5)
--- NOTE | 2020-06-22 17:18 | NUR ---
ADMIT: 06/16/20 DISCHARGE: 06/22/20 DX: Acute Metabolic encephalopathy CC: cpeabody DARI CALL: Discharge home with daughter, Lucia Sunday, Start [facility] hosp[facility] on Sunday. NO DARI appointment needed. RESIDENCE: Home with daughter CAREGIVER: Lucia Zapata, Child, DX: Acute hypoxemic resp. failure, CKD-stage 3, CHF, DM, see list DME: DM supplies, wheelchair CCM: Referral- 2020 HOME HEALTH: [facility] to start services 06/21/20 SUMMARY: Admit: 06/16/20 06/22/20 Transported home by [facility] today. DARI letter sent home in packet, family not available at time of discharge. [facility] to begin today. cp 06/21/20 s/w Daughter Lucia by Telephone. Kelsey placed on comfort care Sunday. Discussed hospice at home, Lucia would like her to be home and after we discussed services she agreed they could care for her at home. s/w Sharlene at [facility]. Transport home is planned for 10:30 am Sunday. cp
== END 2020-06-22 12:12 | disposition hospice, home (50) | DRG 871 ==
LOC: ER 05:07 → MEDS 08:36 → ENPENDDIS 06-21 17:07 → MEDS 06-22 12:12
PROVIDERS: Emergency Medicine; Internal Medicine Gastroenterology; Internal Medicine Nephrology; ADMIT Family Medicine
PROC: 0W993ZZ Drainage of Right Pleural Cavity, Percutaneous Approach (ICD-10-PCS; principal; 2020-06-17)
DX: A41.9 Sepsis, unspecified organism (principal); G93.41 Metabolic encephalopathy; K85.90 Acute pancreatitis without necrosis or infection, unspecified; K83.1 Obstruction of bile duct; E43 Unspecified severe protein-calorie malnutrition; I13.0 Hypertensive heart and chronic kidney disease with heart failure and stage 1 through stage 4 chronic kidney disease, or unspecified chronic kidney disease; I50.22 Chronic systolic (congestive) heart failure; J90 Pleural effusion, not elsewhere classified; N18.4 Chronic kidney disease, stage 4 (severe); E87.0 Hyperosmolality and hypernatremia; N39.0 Urinary tract infection, site not specified; R64 Cachexia; Z68.1 Body mass index [BMI] 19.9 or less, adult; R18.8 Other ascites; N17.9 Acute kidney failure, unspecified; Z66 Do not resuscitate; Z51.5 Encounter for palliative care; R79.89 Other specified abnormal findings of blood chemistry; Z20.822 Contact with and (suspected) exposure to COVID-19; E87.5 Hyperkalemia; R33.9 Retention of urine, unspecified; E11.42 Type 2 diabetes mellitus with diabetic polyneuropathy; D75.1 Secondary polycythemia; E21.3 Hyperparathyroidism, unspecified; E11.65 Type 2 diabetes mellitus with hyperglycemia; K74.60 Unspecified cirrhosis of liver; E11.22 Type 2 diabetes mellitus with diabetic chronic kidney disease; Z79.4 Long term (current) use of insulin; Z90.710 Acquired absence of both cervix and uterus; Z79.899 Other long term (current) drug therapy; Z90.49 Acquired absence of other specified parts of digestive tract; Z98.890 Other specified postprocedural states; W19.XXXA Unspecified fall, initial encounter
CPT/HCPCS: 0241U; 32555; 36415; 70450; 70486; 71045; 71046; 72125; 74150; 76705; 76770; 80053; 80069; 81001; 82140; 82330; 82550; 82945; 82947; 83605; 83615; 83690; 83735; 83880; 84100; 84157; 84165; 84443; 84478; 84484; 85014; 85018; 85025; 85610; 85730; 87040; 87086; 87205; 88108; 88305; 89051; 92610; 93005; 93010; 93306; 96361; 96365; 96375; 99285-25; A9270; J0696; J1650; J1815; J1940; J2060; J2270; J7030; J7070